=== PATIENT | male | born 1975 | race Caucasian/White ===

== ENCOUNTER 2024-09-19 21:48 | Emergency (ER) | payer MEDICAID, SELFPAY ==
[2024-09-19 22:07] VITALS: BP 193/117; PULSE 104; RESP 18; TEMP 36.6; O2SAT 99; BMI 36.7
--- NOTE | 2024-09-19 23:03 | ED_ITS ---
Discharge Plan Disposition Patient Disposition: Home, Self-Care Prescriptions Prescriptions: New methocarbamol 500 mg tablet 500 mg PO Q6H PRN (Reason: pain) Qty: 30 0RF lidocaine 5 % adhesive patch,medicated 1 patch topical DAILY PRN (Reason: pain) Qty: 30 0RF Rx Instructions: leave on most painful area for up to 12 hrs cyclobenzaprine 5 mg tablet 5 mg PO TID PRN (Reason: muscle spasm) Qty: 30 0RF Referrals Follow up/Referrals: Sandra Breaux APRN [Primary Care Provider] - See instructions Activity Restrictions/Add. Instructions Additional Instructions/Restrictions: Please follow-up with your primary care provider and with your orthopedist. Please return to the emergency department if you develop any new or worsening symptoms or become concerned for your health. Clinical Impressions Clinical Impression: Back pain of lumbar region with sciatica, Degenerative joint disease of both hips Print Language Print Language: [place] Discharge ED Provider: Shun Calixto Adult HPI General Chief complaint: PAIN Stated complaint: chronic back pain Time Seen by Provider: 09/19/24 23:03 Mode of Arrival: Ambulatory Source of Information: Patient Description of Symptoms (Recalled from ER Triage Doc. by RN): patient states he is having back pain and both hips are hurting he has sustained multiple falls over the past few weeks. is supposed to have surgery on his righ thip at some point. fell today once due to hip giving out. 10/10 pain that is constant. History of Present Illness HPI narrative: 49-year-old male with history of chronic bilateral hip pain, chronic low back pain presents with worsening symptoms. Reports multiple falls recently. He is supposed to have surgery on his right hip but has not been able to get it yet. Reports that his hip intermittently gives out. Reports significant pain. Denies any fever, history of IV drug use, recent infection. Denies any surgery on the back. Denies any bleeding disorder. Denies any perineal numbness, no bowel or bladder incontinence or retention. Reports pain is various in quality sometimes sharp, sometimes shocking, runs down bilateral legs. Related Data Previous Rx's ?Medication ?Instructions ?Recorded cyclobenzaprine 5 mg tablet 5 mg PO TID PRN muscle spasm #30 09/20/24 tabs lidocaine 5 % topical patch 1 patch topical DAILY PRN pain #30 09/20/24 ea methocarbamol 500 mg tablet 500 mg PO Q6H PRN pain #30 tabs 09/20/24 Allergies Allergy/AdvReac Type Severity Reaction Status Date / Time No Known Allergies Allergy Verified 09/19/24 23:16 [facility] Disclaimer: The information contained in this section may have been updated after the patient was seen, as this information can be updated by other users. Social History Smoking Status: Unknown if ever smoked alcohol intake: never current occupational status: employed Travel in the last 8 weeks: None ROS Obtained: Yes All systems reviewed & no additional complaints except as documented Physical Exam General General appearance: alert and in no apparent distress Head Head exam: atraumatic and normocephalic Eye Eye exam: Present normal appearance, PERRL and EOMI ENT ENT exam: Present normal oropharynx and normal external ear exam Neck Neck exam: Present normal inspection and full ROM Chest Chest inspection: Present normal inspection and symmetric chest wall rise; Absent tenderness Respiratory Respiratory exam: Present normal lung sounds bilaterally; Absent respiratory distress Cardiovascular Cardiovascular exam: Present regular rate and normal rhythm Abdominal Exam Abdominal exam: Present soft; Absent distention, tenderness or guarding Extremities Exam Extremities exam: Present normal inspection; Absent edema or joint swelling Back Exam Back exam: Present normal inspection; Absent tenderness Neurological Exam Neurological exam: Present alert and oriented X3; Absent motor sensory deficit Psychiatric Psychiatric exam: Present normal affect and normal mood Skin Skin exam: Present warm, dry and normal color Lymphatic Lymphatic Findings: no adenopathy Medical Decision Making Medical Records Medical records reviewed: Yes I reviewed the patient's medical records. Screening: Per USPSTF and CDC recommendations, given the prevalence of disease in our region, it is our hospital?s policy to screen for HIV and viral Hepatitis for all patients aged 18 and over and those with ongoing risk factors. Raulito Inquiry Pt receiving controlled substance: No Raulito was queried for this patient: No Vital Signs: 09/19/24 22:07 09/20/24 00:25 Temperature 97.9 F 97.9 F Temperature Source Oral Pulse Rate 88 Pulse Rate [Right] 104 H Respiratory Rate 18 20 Blood Pressure 178/74 H Blood Pressure [Right Arm] 193/117 H Blood Pressure Mean [Right Arm] 142 Blood Pressure Source [Right Arm] Automatic Cuff Blood Pressure Position [Right Arm] Sitting 02 Sat by Pulse Oximetry 99 Oxygen Delivery Method Room Air Room Air Lab Data Lab results reviewed: Yes I reviewed the patient's lab results. Orders (Tests/Meds): ED MEDICATIONS Discontinued Medications Generic Name Dose Route Start Last Admin Trade Name Cristian PRN Reason Stop Dose Admin Acetaminophen 1,000 mg 09/19/24 23:11 09/19/24 23:25 Acetaminophen 500mg Tab PO 09/19/24 23:12 1,000 mg ONCE ONE Administration Ketorolac Tromethamine 30 mg 09/19/24 23:11 09/19/24 23:26 Ketorolac 30mg/Ml Vial IM 09/19/24 23:12 30 mg ONCE ONE Administration Lidocaine 1 each 09/19/24 23:11 09/19/24 23:25 Lidocaine 5% Transdermal Patch TD 09/19/24 23:12 1 each ONCE ONE Administration Methocarbamol 500 mg 09/19/24 23:11 09/19/24 23:25 Methocarbamol 500mg Tablet PO 09/19/24 23:12 500 mg ONCE ONE Administration ORDERS Category Date Time Status CT bony pelvis Stat Cat Scan 09/19/24 23:[address] lumbar spine wo con Stat Cat Scan 09/19/24 23:11 Completed Medical Decision Narrative: 49-year-old male with history of chronic back and hip pain presents with worsening pain over the last few weeks, multiple falls recently. History was obtained via interactive discussion with patient, family. On arrival, patient is [afebrile, hemodynamically stable, satting appropriately, alert, oriented x4, GCS 15], moving all extremities spontaneously. Full physical exam performed and significant for no focal neurologic deficits, paraspinal and midline lumbar spinal tenderness. Differential includes but is not limited to fracture, dislocation, disc herniation, sciatica, spinal cord pathology, arthritis. Patient was given Tylenol, Toradol, Robaxin, lidocaine patches for symptomatic management and correction of underlying abnormalities. Workup initiated including CT lumbar spine, CT bony pelvis. On re-evaluation, patient [remains afebrile, HD stable.] Imaging independently interpreted by me and significant for unusual degenerative changes within the right acetabulum and femur. Hardware appears unremarkable in the left femur. No lumbar fracture or spinal stenosis noted. See radiology read for full review of final results. Given patient history, exam and workup, patient's presentation most likely represents worsening arthritis and chronic back and hip pain. Patient was discharged in stable condition with prescription for muscle relaxers. Return precautions given. Procedures Risk/Benefits of Procedure(s) Were Explained: Yes Critical Care Critical Care Time Critical Care Time: No
--- NOTE | 2024-09-19 23:11 | CT_ITS ---
PROCEDURE INFORMATION: Exam: CT Pelvis Without Contrast, Skeleton Exam date and time: 09/19/2024 11:26 PM Age: 49 years old Clinical indication: Hip pain; Bilateral; Additional info: Aoc bilat hip pain TECHNIQUE: Imaging protocol: Computed tomography of the pelvis without contrast. Exam focused on the skeleton. Radiation optimization: All CT scans at this facility use at least one of these dose optimization techniques: automated exposure control; mA and/or kV adjustment per patient size (includes targeted exams where dose is matched to clinical indication); or iterative reconstruction. COMPARISON: CT LUMBAR SPINE WO CON 09/19/2024 11:24 PM FINDINGS: Bones/joints: Severe degenerative changes of right hip with [id number] appearance, periarticular cysts and marginal osteophytosis. Expansile lucency along right lateral bony acetabulum measuring 2.5 x 1.6 cm (series 1001 image 119). ORIF of left femoral shaft. No significant degenerative changes of left hip. No acute fracture. No dislocation. No obvious effusion. Soft tissues: Unremarkable. IMPRESSION: 1. No acute findings. 2. Severe degenerative changes of right hip with possible paralabral cyst and chronic erosion of lateral bony acetabulum. If clinically indicated, can be further evaluated with MRI.
--- NOTE | 2024-09-19 23:11 | CT_ITS ---
PROCEDURE INFORMATION: Exam: CT Lumbar Spine Without Contrast Exam date and time: 09/19/2024 11:24 PM Age: 49 years old Clinical indication: Low back pain; Additional info: Aoc low back pain, falls, radicular symptoms TECHNIQUE: Imaging protocol: Computed tomography of the lumbar spine without contrast. Radiation optimization: All CT scans at this facility use at least one of these dose optimization techniques: automated exposure control; mA and/or kV adjustment per patient size (includes targeted exams where dose is matched to clinical indication); or iterative reconstruction. COMPARISON: No relevant prior studies available. FINDINGS: Bones/joints: No acute fracture. Normal alignment. Soft tissues: Unremarkable. IMPRESSION: No acute findings.
[2024-09-19] MEDS: METHOCARBAMOL 500MG TABLET 500 MG PO (23:25)
[2024-09-19] MEDS: ACETAMINOPHEN 500MG TAB 1000 MG PO (23:25)
[2024-09-19] MEDS: LIDOCAINE 5% TRANSDERMAL PATCH 1 EACH TD (23:25)
[2024-09-19] MEDS: KETOROLAC 30MG/ML VIAL 30 MG IM (23:26)
[2024-09-20 00:25] VITALS: BP 178/74; PULSE 88; RESP 20; TEMP 36.6; O2SAT 98
== END 2024-09-20 00:29 | disposition home or self-care (01) ==
PROVIDERS: Emergency Provider Emergency Medicine; PCP Nurse Practitioner Family
DX: M16.0 Bilateral primary osteoarthritis of hip (principal); M54.40 Lumbago with sciatica, unspecified side; M25.551 Pain in right hip; M25.552 Pain in left hip; G89.29 Other chronic pain; R29.6 Repeated falls
CPT/HCPCS: 72131; 72192; 96372; 99284; J1885

== ENCOUNTER 2025-03-24 18:39 | Emergency (ER) | payer MEDICAID, SELFPAY ==
--- OUTSIDE RECORDS SUMMARY | 2025-02-05 13:00 | XMS_ITS | Encounter Summary ---
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 Name Role Phone Unavailable Primary Care Provider Unavailabl e Encounter Details Date Type Department Care Team (Latest Contact Info) Description 02/05/2025 1:00 PM EDT - 02/05/2025 11:59 PM EDT Hospital Encounter [facility] Preadmissions Testing [address] [place] [address] Discharge Disposition: Home or Self Care Social History Tobacco Use Types Packs/Day Years Used Date Smoking Tobacco: Never Smokeless Tobacco: Current Alcohol Use Standard Drinks/Week Comments Never 0 (1 standard drink = 0.6 oz pur e alcohol) Sex and Gender Information Value Date Recorded Sex Assigned at Not on file Legal Sex Male 2:06 PM CDT Gender Identity Not on file Sexual Orientation Not on file documented as of this encounter Last Filed Vital Signs Vital Sign Reading Time Taken Comments Blood Pressure - - Pulse - - Temperature - - Respiratory Rate - - Oxygen Saturation - - Inhaled Oxygen Concentration - - Weight 134.3 kg (296 lb) 02/05/2025 11:00 AM EDT ACTUAL Height 190.5 cm (6' 3 ) 02/05/2025 11:00 AM EDT Body Mass Index 37 02/05/2025 11:00 AM EDT documented in this encounter Discharge Instructions * Discharge Instructions* Cely Quiñones RN - 02/05/2025 12:45 PM EDT PRE-SURGICAL INSTRUCTIONS Date of Surgery: 02/07/2025 DIET -NO food or drinks after midnight the night before your surgery -You can have 20 oz of either zero Gatorade/ [place] Gatorade or water up to 2 hours before your scheduled arrival time -NO chewing gum, hard candy, mints, or chewing tobacco. -Follow the surgeon???s specific instructions for the day before your procedure NO ALCOHOL 24 hours before your surgery. NO SMOKING OR TOBACCO PRODUCTS after midnight the night prior to your surgery. HYGIENE- for the night before and morning of surgery -If instructed, bathe or shower using Hibiclens the night before and the morning of surgery. Avoid getting Hibiclens in eyes, ears, or genital area. -Change bed sheets night prior to surgery -You may brush your teeth, mouthwash is acceptable. -No makeup, fingernail amharic, hair spray/gel, body lotion, aftershave, or perfume. -Remove contact lenses and remove jewelry (all body piercings) the day of surgery. -Dentures will be removed prior to being taken to OR during day of surgery. -Wear loose, comfortable clothing to go home in. -Leave valuables and personal belongings at home. Call your surgeon???s office if you become sick 24 hours prior to your surgery date: fever, chills,cold, productive cough, sore throat, vomiting or diarrhea. MEDICATIONS Follow medication list instructions with a sip of water. Stop Vitamins/herbal supplements 2 weeks before surgery. Stop NSAID's (ibuprofen, naproxen sodium, Advil, Aleve, aspirin, ect.) 1 week before surgery. SPECIFIC INSTRUCTIONS Asthma, Bronchitis, COPD: Use your inhaler(s) and/or nebulizer(s) morning of surgery. Diabetics: DO NOT take your diabetic medication the morning of the surgery. Take your medicine the night before as instructed. Make sure to have someone available to assist you 10/01 at least the first week following your surgery If you have any questions please contact the [facility] department at [phone] or the Same Day Surgery Department at [phone]. documented in this encounter Medications at Time of Discharge albuterol (Ventolin HFA) 90 mcg/actuation inhaler Inhale 2 puffs by mouth every 4 (four) hours. budesonide-formoter oL (SYMBICORT) 160-4.5 mcg/actuation inhaler INHALE TWO (2) PUFFS TWICE DAILY famotidine (PEPCID) 40 MG tablet Take 1 tablet (40 mg total) by mouth daily. 11/07/2024 fluticasone propionate (FLONASE) 50 mcg/actuation nasal spray SQUIRT ONE SPRAY IN EACH NOSTRIL EVERY DAY hydrOXYzine (ATARAX) 25 MG tablet Take 1-2 tablets (25-50 mg total) by mouth nightly. 11/07/2024 lidocaine (LIDODERM) 5 % ptmd patch Place 1 patch on the skin daily Remove & Discard patch within 12 hours or as directed by MD. losartan (COZAAR) 50 MG tablet Take 1 tablet (50 mg total) by mouth daily. 11/07/2024 prazosin (MINIPRESS) 1 MG capsule Take 1 capsule (1 mg total) by mouth daily. 11/07/2024 traZODone (DESYREL) 50 MG tablet Take 1 tablet (50 mg total) by mouth daily. 11/07/2024 acetaminophen (Tylenol Extra Strength) 500 MG tablet Take 2 tablets (1,000 mg total) by mouth every 8 (eight) hours for 10 days. 60 tablet 02/07/2025 5 docusate sodium (Colace) 100 MG capsule Take 1 capsule (100 mg total) by mouth 2 (two) times daily for 10 days. 20 capsule 02/07/2025 5 meloxicam (MOBIC) 15 MG tablet Take 1 tablet (15 mg total) by mouth daily for 30 doses. 30 tablet 02/07/2025 5 pantoprazole (PROTONIX) 40 MG tablet Take 1 tablet (40 mg total) by mouth daily for 30 days. 30 tablet 02/07/2025 5 ibuprofen (MOTRIN) 800 MG tablet Take 1 tablet (800 mg total) by mouth 3 (three) times daily. 11/07/2024 5 methocarbamoL (ROBAXIN) 500 MG tablet TAKE ONE (1) TABLET FOUR (4) TIMES A DAY BY ORAL ROUTE FOR 30 DAYS. mupirocin (BACTROBAN) 2 % ointmentIndications :Primary osteoarthritis of right hip,Positive result for methicillin resistant Staphylococcus aureus (MRSA) screening Apply intranasal into each nostril two times a day for five days. 22 g 02/01/2025 oxyCODONE (ROXICODONE) 10 MG tablet Take 1 tablet (10 mg total) by mouth every 6 (six) hours as needed for pain (severe post operative pain) for up to 7 days. Max Daily Amount: 40 mg 28 tablet 02/07/2025 documented as of this encounter Procedure Notes * Cely Quiñones RN - 02/05/2025 1:00 PM EDT Discussed health history and medications. Printed AVS with medication instructions and Pre-SurgicalInstructions then discussed with patient. Patient verbalized understanding of instructions. All questions answered. AVS was given to patient in Pre Procedure Instructions packet. Verified patient will have assistance day of surgery and when d/c'd home. Patient has number to call [facility] or same day surgery with questions. documented in this encounter Plan of Treatment Upcoming Encounters Date Type Department Care Team (Late st Contact Info) Description 04/30/2025 10:45 AM EST Office Visit [facility] - [address] [phone] Joe Arellano MD [address] [place] [phone] documented as of this encounter Visit Diagnoses Not on filedocumented in this encounter
--- OUTSIDE RECORDS SUMMARY | 2025-02-07 07:12 | XMS_ITS | Encounter Summary ---
Author Organization [employer] ([place], [place], [place], [place]) Address [address] [place] [address] Care Team Providers Care Back Panel Padder Name Role Phone [facility], Find-A-Doc Primary Care Provider Reason for Referral * Consultation (Routine) - New Request Specialty Diagnoses / Procedures Referred By Patricia khan Referred To Contact Home Health Services Diagnoses Status post right hip replacement Joe Arellano MD [address] [place] [id number] Phone: tel: fax: Referral ID Status Reason Start Date Expiration Date Visits Requested Visits Authorized [id number] New Request Specialty Services Required 02/07/2025 02/07/2026 1 1 Reason for Visit * Auth/Cert (Routine) Specialty Diagnoses / Procedures Referred By Patricia khan Referred To Contact Diagnoses Osteoarthritis of right hip Osteoarthritis of right hip Procedures SD ARTHRP ACETBLR/PROX FEM PROSTC AGRFT/ALGRFT ARTHROPLASTY, HIP Joe Arellano MD [address] [place] [id number] Phone: tel: fax: Referral ID Status Reason Start Date Expiration Date Visits Re quested Visits Authorized [id number] 01/22/2025 1 1 Encounter Details Date Type Department Care Team (Late st Contact Info) Description 02/07/2025 7:12 AM EDT - 02/07/2025 3:35 PM EDT Hospital Encounter [facility] Operating Room [address] [address] Jeo Arellano MD [address] [place] [address] Status post right hip replacement 02/07/25 (Primary Dx); Osteoarthritis of right hip Discharge Disposition: Home or Self Care Social [...] Sign Reading Time Taken Comments Blood Pressure 130/79 02/07/2025 12:27 PM EDT Pulse 82 02/07/2025 12:27 PM EDT Temperature 36.6 C (97.8 F) 02/07/2025 12:27 PM EDT Respiratory Rate 17 02/07/2025 12:2 7 PM EDT Oxygen Saturation 95% 02/07/2025 12: 27 PM EDT Inhaled Oxygen Concentration - - Weight 128.5 kg (283 lb 6.4 oz) 02/07/2025 7:38 AM EDT Height 190.5 cm (6' 3 ) 02/07/2025 7:38 AM EDT Body Mass Index 35.42 02/07/2025 7:38 AM EDT documented in this encounter Discharge Instructions * Discharge Instructions* Mary Butler RN - 02/07/2025 8:11 AM EDT Sedative Medications given during the procedure can slow your reaction time and coordination for many hours. Please follow these instructions: - DO NOT conduct important business or sign legal documents on the date of the procedure. - DO NOT resume normal activities until directed by your surgeon - DO NOT drive a car or operate any machinery or power tools until directed by your surgeon - DO NOT drink alcohol or take nerve or sleeping medication. These will add to the effects of the sedation. - Regular diet after you tolerate liquids unless instructed otherwise by the physician. - Someone needs to be available to assist you during your recovery -Weight bearing as tolerated with walker -NO driving until instructed by physician, -Do NOT drive while taking pain medications. -Wear shawn hose for 2 weeks. Extra pair will be given before discharged. Clean and exchange daily orif soiled. -You may shower on post op day 3, surgery day is considered day 0. NO soaking or scrubbing. No submerging incision in any body of water (tubs, pools, hot tubs). -Dr. Arellano- Outer dressing will be removed on post op day 1 (if discharged day of surgery). LeaveSilverlon (bandage directly over the incision) in place until you see your surgeon in 10-14 days. At the 10-14 day follow up appointment the surgeon will educate on continued incision care. Leave derma salmon (skin glue) intact, this is directly on the incision. -Silverlon (bandage directly over the incision) is water proof. -Wrap Silverlon (bandage directly over the incision) in Saran Wrap before each shower to help the dressing continue to be waterproof. After each shower remove the Saran Wrap. 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 budesonide-formo teroL (SYMBICORT) 160-4.5 mcg/actuation inhaler INHALE TWO (2) [...] for 30 days. 30 tablet 02/07/2025 5 oxyCODONE (ROXICODONE) 10 MG tablet Take 1 tablet (10 mg total) by mouth every 6 (six) hours as needed for pain (severe post operative pain) for up to 7 days. Max Daily Amount: 40 mg 28 tablet 02/07/2025 5 documented as of this encounter Progress Notes * Harry Diaz - 02/07/2025 3:20 PM EDT Images from the original note were not included. Inpatient Physical Therapy Initial Evaluation Patient Name: Tom Solano Date of : 1975 Date of Evaluation: 02/07/25 In Time 1436 Out Time 1511 Session Duration 35 minutes Time spent for nursing collaboration, chart and systems review, and clinical reasoning. 10 minutes Total Time 45 minutes Pt is a 49 y.o. male admitted on 02/07/2025 with Osteoarthritis of right hip [M16.11]. Past Medical History: Diagnosis Date Asthma Closed left arm fracture COPD (chronic obstructive pulmonary disease) (HCC) Femur fracture, left (HCC) GERD (gastroesophageal reflux disease) Hyperlipidemia Hypertension MRSA infection 01/2025 CODIE (obstructive sleep apnea) MACHINE NONCOMPLIANCE Past Surgical History: Procedure Laterality Date ELBOW FRACTURE SURGERY Left X2 FEMUR FRACTURE SURGERY General Visit Type: Initial Evaluation Approved By: Nursing Patient Disposition Upon Entry: Supine in bed, Call Light/Pull Cord in reach, All needs met and within reach, Nursing aware/notified, HOB >30 degrees, Shawn hose on Patient Verified By: Name and Date of Co-treated by: OT Assisted by: Physical Therapist Precautions Weight-Bearing Status: Weight Bearing As Tolerated (WBAT), R LE Precautions: Fall risk Isolation Precautions: Standard Lines, tubes, drains, airway: peripheral IV Subjective Subjective: Patient agreeable to physical therapy evaluation and treatment. Pain Pt reported 10/10 pain from sitting, notes less intense pain in right hip. RN notified. Cognition WFL Home Living Pt reports at baseline, he is independent with mobility and ADL's using a walking cane. He sometimes requires assist with putting his shoe on the right foot. He has a walking cane and rolling walker at home. He lives with his girlfriend in a two level house with no ASHLY. He only stays on the first level of the home. He has an extensive history of falling, reporting over 20 falls in the past 6 months. Objective Vitals Vitals: 02/07/25 1227 BP: 130/79 Pulse: 82 Resp: 17 Temp: 97.8 ??F (36.6 ??C) SpO2: 95% SpO2 91% and above on room air during ambulation. SpO2 95% and above post ambulation supine in bed. RN aware and notified. Basic Strength Assessment R LE weakness postop, less than 3/5 quad, hamstring strength, less than 3/5 DF and PF strength; L LE strength WNL Range of Motion Assessment Decreased R hip and knee ROM postop Sensation Pt reports numb sensation to R LE postop. Denies chronic N/T. Coordination Coordination is intact and within normal limits. Functional Mobility Bed Mobility Supine to Sit: Minimal assist, 1-person assist, HOB elevated Sit to Supine: Minimal assist, 1-person assist, HOB elevated Transfers Sit to Stand: Contact guard assist, 1-person assist, gait belt used, rolling walker used Stand to Sit: Contact guard assist, 1-person assist, gait belt used, rolling walker used Gait Pt ambulated 150' using RW with contact guard assistance, 1 person assist and gait belt for steadying. Stair Management Pt reported he does not have to negotiate stairs to get into home or within home. Wheelchair Mobility Not assessed, patient ambulatory. AM-PAC Basic Mobility Inpatient Short Form How much difficulty does the patient currently have: Turning over in bed (including adjusting bedclothes, sheets, and blankets)? (3) A little (can do the activity without assistive devices or help from another person, but requires A LITTLE more time and effort) Sitting down on and standing up from a chair with arms (e.g., wheelchair, bedside commode, etc.)? (1) Total/Unable Moving from lying on back to sitting on side of bed? (1) Total/Unable How much help from another person does the patient currently need: Moving to and from a bed to a chair (including a wheelchair)? (3) A little Need to walk in hospital room? (3) A little Climbing 3-5 steps with a railing? (1) Total/Unable Score Raw score=12 Raw score=12 t-Scale score=35.33 Standard error=3.08 CMS 0-100%=68.66% MDC=4.72 A raw score of >= 16 is significantly associated with increased odds of discharge to home in addition to consideration made for the patient's cognition and social determinants of health. Balance Sitting balance standby assist, Standing balance contact guard assist with RW Activity Tolerance Patient limited with activity/intervention due to weakness Treatment Gait training - see above 1 set x 5-10 repetitions R LE ankle pumps, quad sets, glut sets, short arc quads, heel slides, hip abduction/adduction Assessment Pt seen today for a mobility evaluation s/p R ROXANN on 02/07/25. Pt able to stand, ambulate 150' usingthe walker with contact guard assistance. SpO2 91% and above during ambulation, returned to 95% andabove at rest in wheelchair and supine in bed on room air. RN aware and notified. Exercises reviewed with the patient verbalizing and demonstrating understanding. Pt will benefit from skilled PT to improve his strength and independence with functional mobility. Problems: Decreased functional mobility, Decreased gait tolerance, Decreased strength, Decreased activity tolerance, Impaired standing balance, Impaired dynamic balance, Gait impairment, Restricted ROM, Pain , Sensory deficits Rehab potential: Good for stated goals Plan Treatment Plan: Therapeutic Exercise, Therapeutic Activity, Gait Training, Neuromuscular Re-education, Transfer Training, Balance Training, Stair Training, Strengthening, Home Exercise Program, ROM, Wheelchair Management/Mobility Training, Pain Management, Patient/Family/Caregiver Education, DME Rec ommendations, Co-Treat with OT PT Frequency/Duration: 1-2x/day for 2 weeks Recommendations Discharge recommendations: Discharge home/prior living situation. Patient would benefit from continued therapy services. (Anticipate) DME recommendations: Patient has no DME/adaptive equipment discharge needs at this time. (Case management dropped off rolling walker prior to session) Goals Supine to/from sit: Pt will complete supine<>sit Lily Sit to/from stand: Pt will complete sit<>stand using RW SBA Gait: Pt will ambulate 150' using RW SBA Other Goal #1: Pt will be independent with HEP Target Date: 02/21/2025 Goals were discussed with patient and family Education Patient/Visitors educated on safety, use of call button, role of physical therapy, plan of care, therapeutic exercise, HEP packet, ambulation, transfers, bed mobility, ROM/positioning, stair negotiation, home safety, need for assistance and risk for falls and following, they were able to verbalize u nderstanding. No further questions or concerns stated. Patient Disposition Upon Leaving Supine in bed with bed alarm on, Call Light/Pull Cord in reach, All needs met and within reach, Nursing aware/notified, HOB >30 degrees, Family in room, Shawn hose on, SpO2 95% on RA If this patient discharges prior to next therapy session, this note serves as the patient's discharge summary. . Cosigned by Mary Corea PT at 02/07/2025 4:32 PM EDT Associated attestation - Mary Corea PT - 02/07/2025 3:32 PM CDT I evaluated this patient. reviewed the notes, assessments, and/or procedures performed by Harry Diaz, I concur with her/his documentation of Tom Solano. * Montserrat Alvares, OTR/Jef - 02/07/2025 3:19 PM EDT Inpatient Occupational Therapy Initial Evaluation Patient Name: Tom Solano Date of : 1975 Date of Evaluation: 02/07/25 Start Time: 143 Stop Time: 151 Session Duration: 36 minutes Total time: 46 minutes spent, including 10 minutes for nursing collaboration, thorough chart and systems review, and clinical reasoning. This patient is a 49 y.o. male admitted on 02/07/2025 with Osteoarthritis of right hip [M16.11]. Patient had Right ROXANN on 02/07/2025 Past Medical History: Diagnosis Date Asthma Closed left arm fracture COPD (chronic obstructive pulmonary disease) (HCC) Femur fracture, left (HCC) GERD (gastroesophageal reflux disease) Hyperlipidemia Hypertension MRSA infection 01/2025 CODIE (obstructive sleep apnea) MACHINE NONCOMPLIANCE Past Surgical History: Procedure Laterality Date ELBOW FRACTURE SURGERY Left X2 FEMUR FRACTURE SURGERY General Visit type: Initial Evaluation Approved by: Nursing Patient disposition upon entry: Patient verified by name, Patient verified by date of , Supinein bed, Visitor/family present, All needs met and within reach, Call light/pull cord in reach, Headof bed >30 degrees, Nursing aware/notified Co-treated by: PT Assisted by: PT Student Precautions Weightbearing status: Weight bearing as tolerated (WBAT), Right lower extremity Precautions: Fall risk Isolation precautions: Standard LDA/Brace/Protective equipment: Lines, drains, and airways: peripheral IV Brace/protective equipment: No brace Subjective Subjective: Pt agreeable Pain 0-10 SCALE Pain location: buttocks 10/10. Pain intervention: Repositioned Nurse notified. Response to intervention: Gradually improving Cognition Cognition: Overall cognitive status: Patient is awake and alert, attending to directions appropriately, demonstrating good problem solving skills, and aware of any deficits or impairments, if present. Arousal/alertness: Appropriate response to stimuli Orientation level: Oriented x4 Following commands: Follows all commands and directions without difficulty Vision/Hearing History Visual/Hearing History: WFL Home Living Lives with: girlfriend Receives help from: Does not receive help at baseline, but has help available at home if needed , will have / care Type of home: House Home layout: No stairs to enter Bathroom layout: Tub/shower unit Home equipment available: CM brought patient a RW Functional Mobility PLOF: Patient reports being complete independent with all functional mobility prior to onset. Used cane at times Activities of Daily Living PLOF: Patient reports requiring assistance with shoes at times prior to onset. Falls in last 6 months: Pt reports more than 20 falls in the last 6 months Objective Vitals Vital signs stable throughout, no adverse reaction during activity Range of Motion Assessment Normal: Patient is able to use bilateral upper extremities for reaching/grasping/holding objects inall planes, including above shoulder level Strength Assessment Good: Patient is able to use arms to pull, push, and hold moderate to maximal resistance at shoulder, elbow, and wrist. Coordination/Sensation Coordination: [facility] Sensation: Right LE decreased secondary to anesthesia; no prior N/T Bed Mobility Supine to sit: Minimal assistance, Head of bed elevated Sit to supine: Minimal assistance Transfers Sit to stand:Contact guard, Gait belt used, Rolling walker used Stand to sit:Contact guard, Gait belt used, Rolling walker used Functional mobility:Contact guard, Gait belt used, Rolling walker used, 150 feet ADLs Feeding:Independent Patient is a feeder: No Grooming:Setup Bathing:DEMETRICE-Unable to assess Upper body dressing:Setup Lower body dressing:Moderate Assistance Toileting:DEMETRICE-Unable to assess Outcome Measures [facility] Daily Living Functional Assessment How much help from another person does the patient currently need: Putting on and taking off regular lower body clothing? 2 Bathing, including washing, rinsing, and drying? 3 Toileting, including using toilet, bedpan or urinal? 3 Putting on and taking off regular upper body clothing? 3 Taking care of personal grooming such as brushing teeth? 3 Eating meals? 4 Raw Score 18/24 Total Score 46.65% impaired 1=Total/Unable (Total assist/Dependent) 2=A lot (Maximal/Moderate assist) 3=A little (Minimal/Contact guard/Supervision/Setup) 4=None (Modified independent/Independent) Raw Score Approximate Degree of Functional Impairment 6 100% 7 92.44% 8 85.69% 9 79.59% 10 74.70% 11 70.42% 12 66.57% 13 63.03% 14 59.67% 15 56.46% 16 53.32% 17 50.11% 18 46.65% 19 42.80% 20 38.32% 21 32.79% 22 25.80% 23 15.86% 24 0% A raw score of >= 19 is significantly associated with increased odds of discharge to home in addition to consideration made for the patient's cognition and social determinants of health. Balance Static sitting balance:Normal: Patient able to maintain steady balance without handheld support Dynamic sitting balance:Normal: Patient accepts maximal challenge and shift weight easily within full range in all directions Static standing balance:Good: Patient able to maintain balance without handheld support; limited postural sway Dynamic standing balance:Fair: Patient accepts minimal challenge; able to maintain balance while turning head/trunk Activity Tolerance Patient tolerated activity/intervention well with no complaints or adverse events. Treatment Pt and caregiver education completed on EC/WS, home safety, car transfers, AE, DME, LB dressing, and ADL transfers; pt and caregiver verbalized understanding. Assessment Assessment Pt participated in OT eval and treat s/p Right ROXANN. Tolerated session well, no adverse events; progressing toward goals Problems: Difficulty with ADLs, Fall risk, Impaired functional mobility Rehab potential: Good for stated goals Plan Recommendations Discharge recommendations: Discharge home/prior living situation. Patient would benefit from continued therapy services. DME recommendations: Patient would benefit from raised toilet seat, tub transfer bench, walker, rolling at discharge. Treatment Plan: ADL training, DME recommendations , Functional mobility/transfer training, Patient/family/caregiver education, Strengthening OT Frequency/Duration: Daily x 5 days Goals Upper body dressing: donning and doffing upper body dressing clothing with setup. Lower body dressing: donning and doffing lower body clothing with moderate assistance. Toileting: toileting with contact guard assist. Bed mobility: sit to supine, supine to sit with minimal assistance. Functional transfers: ambulatory transfer with contact guard assist and RW . Other goal 1: Pt will be ed on and verbalize understanding of energy conservation/work simplification techniques, home safety, car transfers, adaptive equipment, and lower body dressing techniques toincrease independence with ADLs at home Target Date: 02/11/2025 Goals were discussed with patient and family Education Patient/Visitors educated on safety, use of call light, role of occupational therapy, patient's plan of care, ADLs, hip kit, functional mobility, hip precautions, educational materials provided and following, they were able to verbalize understanding. Patient Disposition Upon Leaving Patient disposition upon leaving: Supine in bed, Visitor/family present, All needs met and within reach, Call light/pull cord in reach, Head of bed >30 degrees, Nursing aware/notified If this patient discharges prior to next therapy session, this note serves as the patient's discharge summary. Electronically signed by LUCHO Levine - 02/07/2025 - 3:19 PM EDT * Estrella Thomason RN - 02/07/2025 3:18 PM EDT Patient passed physical therapy. DC instructions given, patient and family verbalized understanding. * Estrella Thomason RN - 02/07/2025 2:36 PM EDT Patient more alert at this time. Sitting up in bed eating, and drinking. PT/OT at bedside now. * Soumya Cardona RN - 02/07/2025 1:59 PM EDT Notified PT/OT that the patient is still quite drowsy, but able to lift leg and wiggle toes. * Katina Franco RN - 02/07/2025 1:19 PM EDT Pt plans to discharge home with family and have home health for therapy. He needs rolling walker.[employer] for DME provider, Wants [facility] for HH. Referrral sent. Patient/family provided with [facility] approved choice list and Patient choice letter along with Quality data link to access Medicare.gov Care Compare website to review potential post-acute providers. Choice provided to patient/family, and patient preferences received and referral(s) submitted to requested providers. Referral(s) submitted to: [facility] * Estrella Thomason RN - 02/07/2025 1:17 PM EDT Patient is still extremely drowsy. Nodding off mid-conversation. Able to wiggle toes on operative leg. * Mary Butler RN - 02/07/2025 7:48 AM EDT Does not use CPAP at home, does have one, refuses to use documented in this encounter H&P Notes * Joe Arellano MD - 02/07/2025 7:13 AM EDT I have reviewed the above History & Physical and I have examined the patient. No changes have occurred since the above History & Physical. Joe Arellano MD Source Note - Olga Head PA-C - 02/04/2025 9:24 AM EDT NAME: Tom Solano CSN: [id number] : 1975 PCP: No primary care provider on file. REASON FOR VISIT Right hip pain HPI Tom Solano is a right hand dominant 49 y.o. male who presents today as a new patient with a complaint of right hip and groin pain, weakness, and numbness. Patient denies previous trauma or surgery. Patient reports he treats with pain management and has had injection into right hip. Patient reports his pain has been present for 6-7 years. Patient reports symptoms are located in groin and GT region. Patient describes his symptoms as stretching in groin and burning in GT region. Alleviating factors include oxycodone he was previously prescribed by pain management, but no longer takes this. Exacerbating factors include standing. Patient reports going to [facility] ED, where hereceived Flexeril but has not taken any. Patient rates their pain as 10/10. Patient ambulates unassisted, but reports frequent falls. CURRENT MEDICATIONS Current Outpatient Medications Medication Instructions albuterol (Ventolin HFA) 90 mcg/actuation inhaler 2 puffs, inhalation, Every 4 hours cyclobenzaprine (FLEXERIL) 5 mg, Every 8 hours PRN famotidine (PEPCID) 40 mg, Daily fluticasone propionate (FLONASE) 50 mcg/actuation nasal spray SQUIRT ONE SPRAY IN EACH NOSTRIL EVERY DAY hydrOXYzine (ATARAX) 25-50 mg, Every Night ibuprofen (MOTRIN) 800 mg, 3 times daily losartan (COZAAR) 50 mg, Daily mupirocin (BACTROBAN) 2 % ointment Apply intranasal into each nostril two times a day for five days oxyCODONE-acetaminophen (PERCOCET) 7.5-325 mg per tablet Take 1/2 - 1 tablet every 8 hours as needed for severe pain. prazosin (MINIPRESS) 1 mg, Daily traZODone (DESYREL) 50 mg, Daily ALLERGIES No Known Allergies PAST MEDICAL/SURGICAL HISTORY Past Medical History: Diagnosis Date Closed left arm fracture Femur fracture, left (HCC) GERD (gastroesophageal reflux disease) Hyperlipidemia Hypertension Past Surgical History: Procedure Laterality Date FEMUR FRACTURE SURGERY SOCIAL HISTORY Social History Tobacco Use Smoking status: Never Smokeless tobacco: Current Substance Use Topics Alcohol use: Never Drug use: Never FAMILY HISTORY Family History Problem Relation Name Age of Onset Arthritis Mother Cancer Mother Hyperlipidemia Mother Arthritis Father Cancer Father Hyperlipidemia Father Diabetes Maternal Grandmother REVIEW OF SYSTEMS General: No recent fever or chills, no recent weight loss or weight gain, no insomnia HEENT: No change in vision, no glasses/contacts, no hearing loss, no tinnitus, no vertigo, no congestion/sinus issues CVS: No chest pain, no palpitations, no edema, no varicose veins Resp: No dyspnea, no wheezing, no cough, no hemoptysis GI: No dysphagia, no nausea, no vomiting, no heart burn, no constipation, no diarrhea : No dysuria, no hematuria, no nocturia, no history of chronic UTI Musculoskeletal: See HPI Derm: No rash, no abrasions, no skin discoloration, no history or MRSA Neuro: See HPI Endo: No cold/heat intolerance Heme: No abnormal bruising or bleeding Psych: No depression, no anxiety, no fatigue, no mood swings Scribe Attestation: IShani RTR acted as a scribe and transcribed components of the currentencounter under the direction of the Attending Provider. I have not been involved in providing any clinical treatments or patient care. Electronically Signed, CAMPOS Garza OBJECTIVE There were no vitals filed for this visit. Physical Exam Vitals reviewed. Constitutional: Appearance: Normal appearance. HENT: Head: Normocephalic and atraumatic. Skin: General: Skin is warm and dry. Capillary Refill: Capillary refill takes less than 2 seconds. Findings: No bruising or erythema. Neurological: Mental Status: alert and oriented to person, place, and time. Gait: Gait abnormal. Psychiatric: Mood and Affect: Mood normal. Behavior: Behavior normal. Ortho Exam Right Hip Exam Appearance: No swelling, no warmth, no erythema, no ecchymosis, no deformity Tenderness on palpation: Tenderness - Greater Trochanter, - Piriformis, - Glute, - SI ROM: limited internal and external rotation with extreme groin pain Strength: 2/5 Quad strength Testing: + reproducible groin pain with internal and external rotation, limited exam due to extremegroin pain Neurovascular: NVI, -Homans Skin: Normal appearance with no discoloration or wounds, -skin disturbance GAIT: Trendelenburg gait IMAGING/OUTSIDE REPORTS XR hip 2 views right Narrative: X-rays of the right hip dated 01/22/2025 illustrate significant wear of the acetabulum and femoral head with severe joint space narrowing, osteophyte formation and sclerotic changes. Impression: Images personally reviewed, interpreted and dictated by Olga Head PA-C under the supervision of Dr. Joe Arellano MD ASSESSMENT Problem List Items Addressed This Visit None PLAN No follow-ups on file. Return to Clinic if new or worse symptoms occur HEP: gentle ROM as tolerated Discussed conservative treatment vs surgical intervention Discussed right hip total hip arthroplasty Surgical Procedure scheduled today in office: Right Total Hip Arthroplasty Special Surgical Procedure Needs: No Diagnosis Discussion: Hip Osteoarthritis: I discussed with patient in depth the options for treatment of osteoarthritis of the hip. Treatment options that include gentle, low-impact exercise, weight loss, the use of NSAIDs, and intra- articular steroid injections. I also discussed that if all conservative measures fail to provide satisfactory relief of symptoms, we can discuss surgical options to include arthroplasty of the hip. Surgical Risk Discussion: Lower Extremity Total Joint Surgical Risk: The risks and benefits of the planned surgery were discussed in depth with the patient. I discussed potential complications including inherent risk of anesthesia, infection, neurovascular damage, DVT, and rare but real potential loss of limb or life were all reviewed. Patient voices understanding and seems to understand to my satisfaction and wishes to proceed with surgery. I gave them no guarantees in regards to outcomes of this surgery. This patient has pain related to the affected joint. This has caused limitations in activities of daily living in terms of sleep disturbance. They are experiencing a fear of falling related to the affected joint. NSAIDs, physical therapy, intra-articular injections, attempts for weight loss have failed to resolve symptoms. Physical examination findings correlate with subjective complaints. Imaging studies also correlate with subjective complaints. This patient is an appropriate candidate for total joint arthroplasty. Patient has tried and failed:Activity Modification NSAIDs Analgesics Home Exercise Program provided by Provider in office Discussed increased risk of developing a deep venous thrombosis (DVT). Discussed signs and symptomsof a DVT, as well as a pulmonary embolus (PE). Discussed ways to reduce this risk including anti-coagulants which patient will be placed on postoperatively, elevating extremity at rest, and motion ofupper/lower extremity throughout the day to include, but not limited to, hand/ankle pumps. Patient to notify my office if signs or symptoms develop consistent with a DVT or PE. Instructed patient to go to ED if unavailable to reach our office and developing signs of shortness of breath or severe calf pains. Patient verbalizes understanding Narcotic Education/Discussions: GERI performed and reviewed Patient Treats with Pain Management: No Major Surgery: We will prescribe opioids after major surgery for 14 days or less with no refills. Patient education using written material provided to patient: Education, guidance, and counseling about medication: Discussed - Schedule II controlled substance(s) will be prescribed according to your orthopedic care and medical necessity. Schedule II controlled substance(s) are only required for a certain amount of time. Every effort on our part will be usedto switch you over to non-narcotic pain medications as soon as your pain level permits. Our office, your pharmacy, and your insurance company will closely monitor your prescription refills for excessive abuse or [place] [facility] use. If necessary, you will be referred to maintenance painter. We will monitor your use of scheduled drugs through the GERI program. In addition, we will follow the monitoring procedures required by the [facility]. The side effects of Schedule II controlled substance(s) / narcotic medications can include GI upset, constipation, drowsiness, dizziness, impaired judgement, itching, rash, and risk of overdose. Narcotic pain medication has high potential for addiction and abuse if not taken properly. You must follow the dosage prescribed to decrease your riskof dependency and / or abuse. Our goal is to decrease you dosage to avoid withdrawal symptoms. Our goal is to have you off of narcotic pain medication as soon as possible. Opioid treatment agreement signed written consent obtained to prescribe controlled substances. Discussed the risks and benefits of the use of controlled substances with patient, including the risk oftolerance and drug dependence. Patient understands these terms Preoperative Education/Discussion Regarding Modifiable Risk Factors Smoking: Patient currently uses smokeless tobacco: I discussed with the patient that the use of tobacco is recognized as a harmful influence in the management of orthopedic problems. It appears to lower the pain threshold. Smoking increases the chance of developing wound healing problems, sympathetic dystrophy, painful nerve irritation, myofascial pain syndrome and improper fracture healing. It is associated with delayed or incomplete recovery and a higher complication rate following treatment of upper extremity problems. It was recommended that surgical patients be nicotine free 8 weeks prior to surgery. Patient advised to stop smoking. If patient has difficulty with smoking cessation, we will refer to primary care provider to begin a treatment plan to help the patient stop smoking. Smoking cessation counseling of approximately five minutes (greater than 3 minutes and up to 10 minutes)was performed. There is no height or weight on file to calculate BMI. Body Mass Index:Patient's current BMI >35 For TOTAL JOINT: Total Joint: Body mass index Lesser Outcomes after Joint Replacement: Joint replacement will help relieve pain and enable patients to live a gustafson, more active life. However, if the patient is obese (BMI > 40), they may never achievethe increased mobility and range of motion experienced by a patient of normal weight. They may also experience more implant and prosthesis complications after surgery, to include but not limited to the following: Component loosening and failure; 2-7x higher risk for infection. Dislocation of the replacement joint, especially in the hip; In some cases, a second revision surgery may be necessary to remove failed implants and replace them with new ones ones. Weight loss advised: Weight Loss Plan for patient: Discussed the following: decrease caloric intake, begin low impact exercises, and incorporate healthy lifestyle measures. Advised to consult primary care provider prior to making changes. Discussed surgical intervention for weight loss but deferred referral to primary care provider [place] if patient is a good candidate for weight loss surgery. Bariatric surgery should be the last resort for weight Diabetic: Patient is not Diabetic Tonnis Classification System: Grade 3: Large cysts, severe narrowing or obliteration of the joint space, severe deformity of the femoral head Scribe Attestation: Daniel Dodson RTR acted as a scribe and transcribed components of the current encounter under the direction of the Attending Provider. I have not been involved in providing any clinical treatments or patient care. Electronically SignedDaniel RTR PA Attestation: Olga Dodson PA-C examined, discussed diagnosis and treatment options, acted as a scribe and transcribed components of the current encounter under the direction of the Attending Provider. Electronically SignedOlga PA-C 02/04/2025 Olga Head PA-C scribing for Joe Arellano MD I, Anup S. Chattha, MD, have read and agree with the documentation that has been completed regarding this visit. By signing this record, I attest that the documentation was completed in my physical presence and is an accurate record of the encounter. Electronically SignedJoe MD 02/04/2025 9:25 AM EDT José Armijo: [facility] is undergoing an EHR transition as of this date of service. There may be a delay in uploading older paper and EHR chart data to this new system. The above encounter has been documented to the best of the provider's working knowledge of the EHR in conjunction with medical information provided by the patient (and/or the patient's family member). Cosigned by Joe Arellano MD at 02/04/2025 9:34 AM EDT * Olga Head PA-C - 02/04/2025 9:24 AM EDT NAME: Tom Solano CSN: [id number] : 1975 PCP: No primary care provider on file. REASON FOR VISIT Right hip pain HPI Tom Solano is a right hand dominant 49 y.o. male who presents today as a new patient with a complaint of right hip and groin pain, weakness, and numbness. Patient denies previous trauma or surgery. Patient reports he treats with pain management and has had injection into right hip. Patient reports his pain has been present for 6-7 years. Patient reports symptoms are located in groin and GT region. Patient describes his symptoms as stretching in groin and burning in GT region. Alleviating factors include oxycodone he was previously prescribed by pain management, but no longer takes this. Exacerbating factors include standing. Patient reports going to [facility] ED, where hereceived Flexeril but has not taken any. Patient rates their pain as 10/10. Patient ambulates unassisted, but reports frequent falls. CURRENT MEDICATIONS Current Outpatient Medications Medication Instructions albuterol (Ventolin HFA) 90 mcg/actuation inhaler 2 puffs, inhalation, Every 4 hours cyclobenzaprine (FLEXERIL) 5 mg, Every 8 hours PRN famotidine (PEPCID) 40 mg, Daily fluticasone propionate (FLONASE) 50 mcg/actuation nasal spray SQUIRT ONE SPRAY IN EACH NOSTRIL EVERY DAY hydrOXYzine (ATARAX) 25-50 mg, Every Night ibuprofen (MOTRIN) 800 mg, 3 times daily losartan (COZAAR) 50 mg, Daily mupirocin (BACTROBAN) 2 % ointment Apply intranasal into each nostril two times a day for five days oxyCODONE-acetaminophen (PERCOCET) 7.5-325 mg per tablet Take 1/2 - 1 tablet every 8 hours as needed for severe pain. prazosin (MINIPRESS) 1 mg, Daily traZODone (DESYREL) 50 mg, Daily ALLERGIES No Known Allergies PAST MEDICAL/SURGICAL HISTORY Past Medical History: Diagnosis Date Closed left arm fracture Femur fracture, left (HCC) GERD (gastroesophageal reflux disease) Hyperlipidemia Hypertension Past Surgical History: Procedure Laterality Date FEMUR FRACTURE SURGERY SOCIAL HISTORY Social History Tobacco Use Smoking status: Never Smokeless tobacco: Current Substance Use Topics Alcohol use: Never Drug use: Never FAMILY HISTORY Family History Problem Relation Name Age of Onset Arthritis Mother Cancer Mother Hyperlipidemia Mother Arthritis Father Cancer Father Hyperlipidemia Father Diabetes Maternal Grandmother REVIEW OF SYSTEMS General: No recent fever or chills, no recent weight loss or weight gain, no insomnia HEENT: No change in vision, no glasses/contacts, no hearing loss, no tinnitus, no vertigo, no congestion/sinus issues CVS: No chest pain, no palpitations, no edema, no varicose veins Resp: No dyspnea, no wheezing, no cough, no hemoptysis GI: No dysphagia, no nausea, no vomiting, no heart burn, no constipation, no diarrhea : No dysuria, no hematuria, no nocturia, no history of chronic UTI Musculoskeletal: See HPI Derm: No rash, no abrasions, no skin discoloration, no history or MRSA Neuro: See HPI Endo: No cold/heat intolerance Heme: No abnormal bruising or bleeding Psych: No depression, no anxiety, no fatigue, no mood swings Scribe Attestation: Shani Dodson RTR acted as a scribe and transcribed components of the [facility] under the direction of the Attending Provider. I have not been involved in providing any clinical treatments or patient care. Electronically Signed, CAMPOS aGrza OBJECTIVE There were no vitals filed for this visit. Physical Exam Vitals reviewed. Constitutional: Appearance: Normal appearance. HENT: Head: Normocephalic and atraumatic. Skin: General: Skin is warm and dry. Capillary Refill: Capillary refill takes less than 2 seconds. Findings: No bruising or erythema. Neurological: Mental Status: alert and oriented to person, place, and time. Gait: Gait abnormal. Psychiatric: Mood and Affect: Mood normal. Behavior: Behavior normal. Ortho Exam Right Hip Exam Appearance: No swelling, no warmth, no erythema, no ecchymosis, no deformity Tenderness on palpation: Tenderness - Greater Trochanter, - Piriformis, - Glute, - SI ROM: limited internal and external rotation with extreme groin pain Strength: 2/5 Quad strength Testing: + reproducible groin pain with internal and external rotation, limited exam due to extremegroin pain Neurovascular: NVI, -Homans Skin: Normal appearance with no discoloration or wounds, -skin disturbance GAIT: Trendelenburg gait IMAGING/OUTSIDE REPORTS XR hip 2 views right Narrative: X-rays of the right hip dated 01/22/2025 illustrate significant wear of the acetabulum and femoral head with severe joint space narrowing, osteophyte formation and sclerotic changes. Impression: Images personally reviewed, interpreted and dictated by Olga Head PA-C under the supervision of Dr. Joe Arellano MD ASSESSMENT Problem List Items Addressed This Visit None PLAN No follow-ups on file. Return to Clinic if new or worse symptoms occur HEP: gentle ROM as tolerated Discussed conservative treatment vs surgical intervention Discussed right hip total hip arthroplasty Surgical Procedure scheduled today in office: Right Total Hip Arthroplasty Special Surgical Procedure Needs: No Diagnosis Discussion: Hip Osteoarthritis: I discussed with patient in depth the options for treatment of osteoarthritis of the hip. Treatment options that include gentle, low-impact exercise, weight loss, the use of NSAIDs, and intra- articular steroid injections. I also discussed that if all conservative measures fail to provide satisfactory relief of symptoms, we can discuss surgical options to include arthroplasty of the hip. Surgical Risk Discussion: Lower Extremity Total Joint Surgical Risk: The risks and benefits of the planned surgery were discussed in depth with the patient. I discussed potential complications including inherent risk of anesthesia, infection, neurovascular damage, DVT, and rare but real potential loss of limb or life were all reviewed. Patient voices understanding and seems to understand to my satisfaction and wishes to proceed with surgery. I gave them no guarantees in regards to outcomes of this surgery. This patient has pain related to the affected joint. This has caused limitations in activities of daily living in terms of sleep disturbance. They are experiencing a fear of falling related to the affected joint. NSAIDs, physical therapy, intra-articular injections, attempts for weight loss have failed to resolve symptoms. Physical examination findings correlate with subjective complaints. Imaging studies also correlate with subjective complaints. This patient is an appropriate candidate for total joint arthroplasty. Patient has tried and failed:Activity Modification NSAIDs Analgesics Home Exercise Program provided by Provider in office Discussed increased risk of developing a deep venous thrombosis (DVT). Discussed signs and symptomsof a DVT, as well as a pulmonary embolus (PE). Discussed ways to reduce this risk including anti-coagulants which patient will be placed on postoperatively, elevating extremity at rest, and motion ofupper/lower extremity throughout the day to include, but not limited to, hand/ankle pumps. Patient to notify my office if signs or symptoms develop consistent with a DVT or PE. Instructed patient to go to ED if unavailable to reach our office and developing signs of shortness of breath or severe calf pains. Patient verbalizes understanding Narcotic Education/Discussions: GERI performed and reviewed Patient Treats with Pain Management: No Major Surgery: We will prescribe opioids after major surgery for 14 days or less with no refills. Patient education using written material provided to patient: Education, guidance, and counseling about medication: Discussed - Schedule II controlled substance(s) will be prescribed according to your orthopedic care and medical necessity. Schedule II controlled substance(s) are only required for a certain amount of time. Every effort on our part will be usedto switch you over to non-narcotic pain medications as soon as your pain level permits. Our office, your pharmacy, and your insurance company will closely monitor your prescription refills for excessive abuse or [place] [facility] use. If necessary, you will be referred to maintenance painter. We will monitor your use of scheduled drugs through the GERI program. In addition, we will follow the monitoring procedures required by the [facility]. The side effects of Schedule II controlled substance(s) / narcotic medications can include GI upset, constipation, drowsiness, dizziness, impaired judgement, itching, rash, and risk of overdose. Narcotic pain medication has high potential for addiction and abuse if not taken properly. You must follow the dosage prescribed to decrease your riskof dependency and / or abuse. Our goal is to decrease you dosage to avoid withdrawal symptoms. Our goal is to have you off of narcotic pain medication as soon as possible. Opioid treatment agreement signed written consent obtained to prescribe controlled substances. Discussed the risks and benefits of the use of controlled substances with patient, including the risk oftolerance and drug dependence. Patient understands these terms Preoperative Education/Discussion Regarding Modifiable Risk Factors Smoking: Patient currently uses smokeless tobacco: I discussed with the patient that the use of tobacco is recognized as a harmful influence in the management of orthopedic problems. It appears to lower the pain threshold. Smoking increases the chance of developing wound healing problems, sympathetic dystrophy, painful nerve irritation, myofascial pain syndrome and improper fracture healing. It is associated with delayed or incomplete recovery and a higher complication rate following treatment of upper extremity problems. It was recommended that surgical patients be nicotine free 8 weeks prior to surgery. Patient advised to stop smoking. If patient has difficulty with smoking cessation, we will refer to primary care provider to begin a treatment plan to help the patient stop smoking. Smoking cessation counseling of approximately five minutes (greater than 3 minutes and up to 10 minutes)was performed. There is no height or weight on file to calculate BMI. Body Mass Index:Patient's current BMI >35 For TOTAL JOINT: Total Joint: Body mass index Lesser Outcomes after Joint Replacement: Joint replacement will help relieve pain and enable patients to live a gustafson, more active life. However, if the patient is obese (BMI > 40), they may never achievethe increased mobility and range of motion experienced by a patient of normal weight. They may also experience more implant and prosthesis complications after surgery, to include but not limited to the following: Component loosening and failure; 2-7x higher risk for infection. Dislocation of the replacement joint, especially in the hip; In some cases, a second revision surgery may be necessary to remove failed implants and replace them with new ones ones. Weight loss advised: Weight Loss Planfor patient: Discussed the following: decrease caloric intake, begin low impact exercises, and incorporate healthy lifestyle measures. Advised to consult primary care provider prior to making changes. Discussed surgical intervention for weight loss but deferred referral to primary care provider to determine if patient is a good candidate for weight loss surgery. Bariatric surgery should be the last resort for weight Diabetic: Patient is not Diabetic Tonnis Classification System: Grade 3: Large cysts, severe narrowing or obliteration of the joint space, severe deformity of the femoral head Scribe Attestation: IDaniel RTR acted as a scribe and transcribed components of the current encounter under the direction of the Attending Provider. I have not been involved in providing any clinical treatments or patient care. Electronically Signed, CAMPOS Sesay PA Attestation: IOlga PA-C examined, discussed diagnosis and treatment options, acted as a scribe and transcribed components of the current encounter under the direction of the Attending Provider. Electronically Signed, Olga Head PA-C 02/04/2025 Olga Head PA-C scribing for Joe Arellano MD I, Joe Arellano MD, have read and agree with the documentation that has been completed regarding this visit. By signing this record, I attest that the documentation was completed in my physical presence and is an accurate record of the encounter. Electronically Signed, Joe Arellano MD 02/04/2025 9:25 AM EDT José Armijo: [facility] is undergoing an EHR transition as of this date of service. There may be a delay in uploading older paper and EHR chart data to this new system. The above encounter has been documented to the best of the provider's working knowledge of the EHR in conjunction with medical information provided by the patient (and/or the patient's family member). Cosigned by Joe Arellano MD at 02/04/2025 9:34 AM EDT documented in this encounter OR Notes * Op Note - Joe Arellano MD - 02/07/2025 11:58 AM EDT DATE OF PROCEDURE: 02/07/2025 PREOPERATIVE DIAGNOSIS: Right hip advanced osteoarthritis. POSTOPERATIVE DIAGNOSIS: Right hip advanced osteoarthritis. PROCEDURE PERFORMED: Right total hip arthroplasty. ASSISTANTS: 1. Olga Head PA-C. 2. Liliana Camejo CFA. 3. Mary Izaguirre LPN. ANESTHESIA: General. ESTIMATED BLOOD LOSS: Approximately, 150 mL. COMPLICATIONS: None. DRAINS: None. CONDITION: Stable to recovery room. OPERATIVE INDICATIONS: Tom is a really pleasant young large male at 49 years old who had a history of previous left femoral rodding with minor osteoarthritis in his left hip and severe osteoarthritis in his right hip. He had failed conservative treatment and on presentation was interested in hip replacement. We discussed his age and how he was in higher risk because of it. Nevertheless, he felt that it was affecting his activities of daily living and given the severity on radiographs, we felt he would be a good candidate for hip replacement. Prior to surgery, risks, benefits, and alternatives were discussed with the patient and informed consent was obtained. OPERATIVE NARRATIVE: I saw Tom in the preoperative holding area and marked his right leg. He mentioned he wished to try to go home today and we felt that would be acceptable as long as he pass physical therapy. He received prophylactic antibiotics. Once in the operating room, a general anesthetic was induced. We positioned him in the left lateral decubitus position for right hip surgery. Leg lengths seemed relatively symmetric. There was a large hip flexion contracture and abduction contracture, where it was difficult to fully assess. We did a standard prep and drape to the right lower extremity. We paused for appropriate time-out. He had already been given preoperative antibiotics, Decadron, and tranexamic acid. After the appropriate time-out, we used a lateral incision with an anterolateral approach to the hip. I reflected about 1/3 of the abductors and the capsule off the hip. The capsule was thickened and redundant, and there were large osteophytes circumferentially around the neck. 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 Once I was able to open up the capsule, I made a T-shaped incision on the edge of the acetabulum and then placed Cobra retractors underneath the neck. I was able to dislocate the hip without difficulty. I carried out a femoral neck cut 1 fingerbreadth above the lesser trochanter. We removed the head and exposed the acetabulum. There was some anterior osteophyte. We removed the labrum and ligamentum teres along with a portion of the transverse acetabular ligament. Once I had good exposure, I removed some of the anterior osteophyte. I then placed the reamer and began sequential reaming starting at 50 mm and reamed up to 56 mm. This seemed to give me a nice circumferential bed of good cancellous bleeding bone. I was able to impact a 56 mm solid back Trident II Tritanium shell. This seated beautifully. We had good purchase. We tried to place this in about 40 degrees of abduction and 20 degrees of anteversion. Once down, I removed the handle and confirmed that I was all the way down through the center hole. I then eliminated this hole with a screw and cap. We inserted the 0 degree standard X3 highly cross-linked polyethylene liner. Next, we exposed the proximal femur by placing the foot in a pouch in the opposite side of the bed and rotating it such that the tibia was perpendicular to the floor. I marked my anteversion here. We then rotated further and gained really good exposure. With retractors in place, I used a box osteotome followed by a hand canal reamer. I then began sequential broaching with the [employer] broaches. We started at size [address] all the way up to size 6, which seemed to fill the proximal canal and really fit well. The patient really had fantastic bone, which was not surprising given his young age. We removed the broach and placed the final implant. I then trialed a 36 +0 head. This reduced nicely, gave us good muscle tension, excellent range of motion, was stable throughout a full range of motion. We removed the trial and replaced it with a biologic equivalent. We then reduced the hip and put it through a full range of motion again. We were quite happy with the outcome. We thoroughly washed at this point using 3 L of Pulsavac lavage and a vancomycin solution. I applied a periarticular ropivacaine cocktail. We then began standard closure and dressings. The patient was transferred to the recovery room in stable condition. He tolerated the procedure well without any complications. /[id number] Joe Arellano MD ASC/AQ / ASC / AQS /[id number] documented in this encounter Plan of Treatment Upcoming Encounters Date Type Department Care Team (Late st Contact Info) Description 04/30/2025 10:45 AM EST Office Visit [facility] - [address] [id number] Joe Arellano MD [address] [place] [address] Scheduled Referrals Name Type Priority Associated Diagnoses Orde r Schedule Ambulatory referral to Home Health Outpatient Referral Routine Status post right hip replacement 02/07/25 Expected: 02/07/2025, Expires: 02/07/2026 documented as of this encounter Procedures Procedure Name Priority Date/Time Associated Diagnosis Comments XR HIP 2 VIEWS RIGHT STAT 02/07/2025 12:04 PM EDT SD ARTHRP ACETBLR/PROX FEM PROSTC AGRFT/ALGRFT 02/07/2025 9:38 AM EDT Osteoarthritis of right hip Case Notes 0700 TISSUE EXAM (MICHI DUMONT) AP Routine 02/07/2025 8:02 AM EDT Osteoarthritis of right hip documented in this encounter Results * XR hip 2 views right (02/07/2025 12:04 PM EDT) Anatomical Region Laterality Modality Pelvis X-Ray 02/07/2025 2:12 PM EDT Impressions 02/07/2025 2:20 PM EDT Surgical changes of arthroplasty without hardware complication. Images reviewed, interpreted, and dictated by Dr. Yana Clark. Transcribed by Antonietta Daigle PA-C. Narrative 02/07/2025 2:20 PM EDT XR HIP 2 VIEWS RIGHT HISTORY: Joint pain. Recent surgery . COMPARISON: January 22, 2025. FINDINGS: A 3 view exam demonstrates surgical changes of right total hip arthroplasty. The hardware has a normal appearance. No fracture is identified. There is an IM blake in the left femur noted. Procedure Note Trevor Clark MD - 02/07/2025 XR HIP 2 VIEWS RIGHT HISTORY: Joint pain. Recent surgery . COMPARISON: January 22, 2025. FINDINGS: A 3 view exam demonstrates surgical changes of right total hip arthroplasty. The hardware has a normal appearance. No fracture is identified. There is an IM blake in the left femur noted. IMPRESSION: Surgical changes of arthroplasty without hardware complication. Images reviewed, interpreted, and dictated by Dr. Yana Clark. Transcribed by Antonietta Daigle PA-C. Joe Arellano MD IMG DIAGNOSTIC IMAGING ORDERAB LES Final Result * Tissue Exam (02/07/2025 8:02 AM EDT) AP RESULT See Note: PATHOLOGY AND CYTOLOGY LABORATORY Comment: PATHOLOGY REPORT DIAGNOSIS: A. FEMORAL HEAD, LEFT, GROSS ONLY: Changes consistent with osteoarthritis Final Reviewed, Diagnosed and Electronically Signed By: ALAN BRANNON MD CLINICAL HISTORY: Obstructive sleep apnea (adult) (pediatric) OSTEOARTHRITIS OF RIGHT HIP MICROSCOPIC DESCRIPTION: GROSS DESCRIPTION: A. Specimen received in formalin labeled right femoral head and consists of a 5.5 cm in diameter by 4.9 cm in length femoral head having a smooth cut proximal end. There is also a separate 4.5 x 2.2 x 0.6 cm portion of bone. Specimen has a total combined weight of 144 g. The articular surface is day and glistening with markedly roughened areas of granularity and multiple areas of eburnation with pitting. No sections are submitted. JTM/RLL Tissue BONE STRUCTURE / Unknown 02/07/2025 8:02 AM EDT us Joe Arellano MD PATHOLOGY/CYTOLOGY ORDERABLES Final Result PATHOLOGY AND [facility]TOLOGY LABORAT[facility] [address] documented in this encounter Visit Diagnoses Diagnosis Status post right hip replacement 8/21/25- Primary Osteoarthritis of right hip Status post right hip replacement 02/07/25 Osteoarthritis of right hip CODIE (obstructive sleep apnea) Obstructive sleep apnea (adult) (pediatric) HTN (hypertension) Unspecified essential hypertension Chronic obstructive pulmonary disease (HCC) Asthma Unspecified asthma documented in this encounter Admitting Diagnoses Diagnosis Osteoarthritis of right hip documented in this encounter Administered Medications Inactive Administered Medications - up to 3 most recent administrations Medication Order MAR Action Action Date Dose Rate Site acetaminophen (TYLENOL) tablet 1,000 mg 1,000 mg Once, oral, On Luanne 02/07/25 at 0800, For 1 dose, Give preprocedure, Pre-op Given 02/07/2025 8:05 AM EDT 1,000 mg celecoxib (CeleBREX) capsule 200 mg 200 mg Once, oral, On Luanne 02/07/25 at 0800, For 1 dose, Look-alike/Sound-alike medication, Pre-op Given 02/07/2025 8:05 AM EDT 200 mg diphenhydrAMINE (BENADRYL) injection 12.5 mg 12.5 mg Every 15 min PRN, intravenous, itching, Starting on Luanne 02/07/25 at 1058, For 4 doses, Maximum cumulative dose 100 mg , PACU ePHEDrine sulfate injection 5 mg 5 mg Every 5 min PRN, intravenous, DBP less than 50 mmHg, SBP less than 100 mmHg, Starting on Luanne 02/07/25 at 1058, For 4 doses, PACU famotidine (PEPCID) tablet 20 mg 20 mg Once, oral, On Luanne 02/07/25 at 0800, For 1 dose, Pharmacist to renally dose if CrCl is less than 50 mL/min or on CRRT., Pre-op Given 02/07/2025 8:05 AM EDT 20 mg fentaNYL PF (SUBLIMAZE) injection 25 mcg 25 mcg Every 5 min PRN, intravenous, severe pain (7-10), First Line for pain moderate or greater, Starting on Luanne 02/07/25 at 1058, For 4 doses, Maximum cumulative dose 100 mcg. If maximum dose is reached, proceed to 2nd Line agent., PACU glycopyrrolate (ROBINUL) injection 0.2 mg 0.2 mg Every 5 min PRN, intravenous, HR less than 50, Starting on Luanne 02/07/25 at 1058, For 2 doses, PACU hydrALAZINE (APRESOLINE) injection 10 mg 10 mg Every 20 min PRN, intravenous, high blood pressure (specify), SBP > 180, Starting on Luanne 02/07/25 at 1058, For 2 doses, Hold if SBP less than 140 mmHg, DBP less than 70 mmHg, or patient is on pressor. Look-alike/Sound-alike medication, PACU HYDROmorphone (DILAUDID) injection 0.5 mg 0.5 mg Every 10 min PRN, intravenous, severe pain (7-10), 2nd Line agent after max dose Fentanyl given if ordered., Starting on Luanne 02/07/25 at 1058, For 4 doses, Maximum cumulative dose 2 mg, PACU, PACU labetaloL (TRANDATE, NORMODYNE) injection 5 mg 5 mg Every 5 min PRN, intravenous, hypertension (sbp greater than 140), Starting on Luanne 02/07/25 at 1058, For 4 doses, Hold if SBP less than 140 mmHg, DBP less than 70 mmHg, or HR less than 60 bpm, PACU lactated Ringer's infusion 100 mL/hr Continuous, intravenous, Starting on Luanne 02/07/25 at 0800, Do not give simultaneously with ceftriaxone via a Y-site., Pre-op New Bag 02/07/2025 11:39 AM EDT Continued by Anesthesia 02/07/2025 9:38 AM EDT 100 mL/hr New Bag 02/07/2025 8:05 AM EDT 100 mL/hr 100 mL/hr meperidine (PF) (DEMEROL) injection 12.5 mg 12.5 mg Every 15 min PRN, intravenous, shivering, Starting on Luanne 02/07/25 at 1058, For 4 doses, PACU, Are you ordering this medication for the approved restricted patient population specified above? Yes mupirocin (BACTROBAN) 2 % ointment 1 application. intraNASAL, Once, On Luanne 02/07/25 at 0800, For 1 dose, Preprocedure to both nares preoperatively, Pre-op Given 02/07/2025 8:05 AM EDT 1 application. ondansetron (ZOFRAN) injection 4 mg 4 mg Every 15 min PRN, intravenous, nausea, Starting on Luanne 02/07/25 at 1058, For 2 doses, 1st line for nausea For IV push, give over 2 - 5 minutes., PACU ondansetron (ZOFRAN) injection 4 mg 4 mg Every 8 hours PRN, intravenous, nausea, vomiting, Starting on Luanne 02/07/25 at 1229, Give IV if patient is unable to take orally. 1st line If inadequate response within 60 minutes, proceed to next-line agent for same PRN reason or contact provider if no further options ordered. For IV push, give over 2 - 5 minutes., Phase II/On Unit ondansetron (ZOFRAN-ODT) disintegrating tablet 4 mg 4 mg Every 8 hours PRN, oral, nausea, vomiting, Starting on Luanne 02/07/25 at 1229, 1st line. If inadequate response within 60 minutes, proceed to next-line agent for same PRN reason or contact provider if no further options ordered., Phase II/On Unit oxyCODONE (ROXICODONE) immediate release tablet 5 mg 5 mg Once as needed, oral, moderate pain (4-6), severe pain (7-10), For patients going home if they have not received hydromorphone or morphine., Starting on Luanne 02/07/25 at 1058, For 1 dose, Look-alike/Sound-alike medication, PACU Given 02/07/2025 12:21 PM EDT 5 mg promethazine (PHENERGAN) 12.5 mg in sodium chloride 0.9 % (NS) 50 mL IVPB (Immediate Use Only) 12.5 mg Every 6 hours PRN, intravenous, at 150 mL/hr, nausea, vomiting, Starting on Luanne 02/07/25 at 1229, 2nd line. Give IV if patient is unable to take orally. If inadequate response within 60 minutes, proceed to next-line agent for same PRN reason or contact provider if no further options ordered. , Phase II/On Unit promethazine (PHENERGAN) tablet 25 mg 25 mg Every 6 hours PRN, oral, nausea, vomiting, Starting on Luanne 02/07/25 at 1229, 2nd line. If inadequate response within 60 minutes, proceed to next-line agent for same PRN reason or contact provider if no further options ordered., Phase II/On Unit vancomycin IVPB 2000 mg in sodium chloride 0.9% (NS) 500 mL 2,000 mg Once (rounded from 2,014.5 mg = 15 mg/kg 134.3 kg), intravenous, Administer over 120 Minutes, On Luanne 02/07/25 at 0800, For 1 dose, Administer within 60 minutes of incision. *Refrigerate*, Pre-op, Please choose an indication: Surgical Prophylaxis IVPB Started 02/07/2025 8:08 AM EDT 2,000 mg 250 mL/hr documented in this encounter Active and Recently Administered Medications Times are shown in EDT. Scheduled Medication Order 02/05/2025 02/06/2025 02/07/2025 acetaminophen (TYLENOL) tablet 1,000 mg (COMPLETED) 1,000 mg Once, oral, On Luanne 02/07/25 at 0800, For 1 dose, Give preprocedure, Pre-op 804 (Given - Provid er: Mary Butler RN) aspirin EC tablet 81 mg 81 mg 2 times daily, oral, First dose on Tue02/08/25 at 0900, For 30 days, * DO NOT CRUSH THIS DOSAGE FORM * ceFAZolin (ANCEF) 3 g in sodium chloride 0.9% (NS) 100 mL (PMX) IVPB (COMPLETED) 3 g Once, intravenous, Administer over 60 Minutes, On Luanne 02/07/25 at 0800, For 1 dose, Cefazolin 2g adjusted to cefazolin 3g for weight >120kg, Please choose an indication: Surgical Prophylaxis 0937 (Given - Provid er: Hayley Salter CRNA) celecoxib (CeleBREX) capsule 200 mg (COMPLETED) 200 mg Once, oral, On Luanne 02/07/25 at 0800, For 1 dose, Look-alike/Sound-alike medication, Pre-op 804 (Given - Provid er: Mary Butler RN) famotidine (PEPCID) tablet 20 mg (COMPLETED) 20 mg Once, oral, On Luanne 02/07/25 at 0800, For 1 dose, Pharmacist to renally dose if CrCl is less than 50 mL/min or on CRRT., Pre-op 804 (Given - Provid er: Mary Butler RN) ferrous sulfate EC tablet 325 mg 325 mg Daily, oral, First dose on Luanne 02/07/25 at 1300, * DO NOT CRUSH THIS DOSAGE FORM *, Phase II/On Unit 1300 (Due) meloxicam (MOBIC) tablet 7.5 mg 7.5 mg Every 12 hours interval, oral, First dose on Tue02/08/25 at 0900, 1st line analgesic, Phase II/On Unit mupirocin (BACTROBAN) 2 % ointment 1 application. (COMPLETED) intraNASAL, Once, On Luanne 02/07/25 at 0800, For 1 dose, Preprocedure to both nares preoperatively, Pre-op 08 (Given - Provid er: Mary Butler, MARY) pantoprazole (PROTONIX) EC tablet 40 mg 40 mg Daily, oral, First dose on Luanne 02/07/25 at 1300, * DO NOT CRUSH THIS DOSAGE FORM *, Phase II/On Unit 1300 (Due) polyethylene glycol (GLYCOLAX) packet 17 g 17 g Daily, oral, First dose on Luanne 02/07/25 at 1300, Bowel Regimen - for prevention of constipation., Phase II/On Unit 1300 (Due) sennosides (SENOKOT) tablet 17.2 mg 17.2 mg Every Night, oral, First dose on Luanne 02/07/25 at 2100, Bowel Regimen - for prevention of constipation., Phase II/On Unit vancomycin IVPB 2000 mg in sodium chloride 0.9% (NS) 500 mL (COMPLETED) 2,000 mg Once (rounded from 2,014.5 mg = 15 mg/kg 134.3 kg), intravenous, Administer over 120 Minutes, On Luanne 02/07/25 at 0800, For 1 dose, Administer within 60 minutes of incision. *Refrigerate*, Pre-op, Please choose an indication: Surgical Prophylaxis 0808 (IVPB Started - Provider: Mary Butler, MARY)1008 (Due: IVPB Stopped - Provider: Mary Butler RN) Continuous Medication Order 02/05/2025 02/06/2025 02/07/2025 lactated Ringer's infusion (CANCELED) 100 mL/hr Continuous, intravenous, Starting on Luanne 02/07/25 at 0800, Do not give simultaneously with ceftriaxone via a Y-site., Pre-op 08 (New Bag - Prov ider: Mary Butler RN)0994 (Continued by Anesthesia - Provider: Hayley Salter CRNA)1138 (Paused - Provider: Hayley Salter CRNA - Comment: Switch to gravity)1139 (New Bag - Provider: Hayley Salter CRNA) sodium chloride 0.9 % infusion 125 mL/hr Continuous, intravenous, Starting on Luanne 02/07/25 at 1300, Phase II/On Unit 1300 (Due) PRN Medication Order 02/05/2025 02/06/2025 02/07/2025 acetaminophen (TYLENOL) tablet 1,000 mg 1,000 mg Every 8 hours PRN, oral, mild pain (1-3), Starting on Luanne 02/07/25 at 1229, 1st line analgesic, Phase II/On Unit diphenhydrAMINE (BENADRYL) injection 12.5 mg 12.5 mg Every 15 min PRN, intravenous, itching, Starting on Luanne 02/07/25 at 1058, For 4 doses, Maximum cumulative dose 100 mg , PACU ePHEDrine sulfate injection 5 mg 5 mg Every 5 min PRN, intravenous, DBP less than 50 mmHg, SBP less than 100 mmHg, Starting on Luanne 02/07/25 at 1058, For 4 doses, PACU fentaNYL PF (SUBLIMAZE) injection 25 mcg 25 mcg Every 5 min PRN, intravenous, severe pain (7-10), First Line for pain moderate or greater, Starting on Luanne 02/07/25 at 1058, For 4 doses, Maximum cumulative dose 100 mcg. If maximum dose is reached, proceed to 2nd Line agent., PACU glycopyrrolate (ROBINUL) injection 0.2 mg 0.2 mg Every 5 min PRN, intravenous, HR less than 50, Starting on Luanne 02/07/25 at 1058, For 2 doses, PACU hydrALAZINE (APRESOLINE) injection 10 mg 10 mg Every 20 min PRN, intravenous, high blood pressure (specify), SBP > 180, Starting on Luanne 02/07/25 at 1058, For 2 doses, Hold if SBP less than 140 mmHg, DBP less than 70 mmHg, or patient is on pressor. Look-alike/Sound-alike medication, PACU HYDROmorphone (DILAUDID) injection 0.5 mg 0.5 mg Every 10 min PRN, intravenous, severe pain (7-10), 2nd Line agent after max dose Fentanyl given if ordered., Starting on Luanne 02/07/25 at 1058, For 4 doses, Maximum cumulative dose 2 mg, PACU, PACU HYDROmorphone (DILAUDID) injection 1 mg 1 mg Every 4 hours PRN, intravenous, severe pain (7-10), Starting on Luanne 02/07/25 at 1229, 3rd line analgesic. Give only if inadequate response (less than 50% reduction in pain score) 60 minutes after administration of 2nd line agent. May give in addition to 1st + 2nd line analgesics (+ adjuvants if ordered), Phase II/On Unit hydrOXYzine (ATARAX) tablet 25 mg 25 mg Every 6 hours PRN, oral, itching, Starting on Luanne 02/07/25 at 1229, Look-alike/Sound-alike medication, Phase II/On Unit labetaloL (TRANDATE, NORMODYNE) injection 5 mg 5 mg Every 5 min PRN, intravenous, hypertension (sbp greater than 140), Starting on Luanne 02/07/25 at 1058, For 4 doses, Hold if SBP less than 140 mmHg, DBP less than 70 mmHg, or HR less than 60 bpm, PACU meperidine (PF) (DEMEROL) injection 12.5 mg 12.5 mg Every 15 min PRN, intravenous, shivering, Starting on Luanne 02/07/25 at 1058, For 4 doses, PACU, Are you ordering this medication for the approved restricted patient population specified above? Yes naloxone (NARCAN) injection 0.2 mg 0.2 mg Every 2 min PRN, intravenous, opioid reversal, respiratory depression,, Starting on Luanne 02/07/25 at 1229, Give for respiratory rate less than 10 breaths/min or if patient is difficult to arouse. Max dose = 10mg. Call provider., Phase II/On Unit ondansetron (ZOFRAN) injection 4 mg 4 mg Every 15 min PRN, intravenous, nausea, Starting on Luanne 02/07/25 at 1058, For 2 doses, 1st line for nausea For IV push, give over 2 - 5 minutes., PACU ondansetron (ZOFRAN) injection 4 mg(Linked Group 1) 4 mg Every 8 hours PRN, intravenous, nausea, vomiting, Starting on Luanne 02/07/25 at 1229, Give IV if patient is unable to take orally. 1st line If inadequate response within 60 minutes, proceed to next-line agent for same PRN reason or contact provider if no further options ordered. For IV push, give over 2 - 5 minutes., Phase II/On Unit ondansetron (ZOFRAN-ODT) disintegrating tablet 4 mg(Linked Group 1) 4 mg Every 8 hours PRN, oral, nausea, vomiting, Starting on Luanne 02/07/25 at 1229, 1st line. If inadequate response within 60 minutes, proceed to next-line agent for same PRN reason or contact provider if no further options ordered., Phase II/On Unit oxyCODONE (ROXICODONE) immediate release tablet 5 mg (COMPLETED) 5 mg Once as needed, oral, moderate pain (4-6), severe pain (7-10), For patients going home if they have not received hydromorphone or morphine., Starting on Luanne 02/07/25 at 1058, For 1 dose, Look-alike/Sound-alike medication, PACU 1221 (Given - Provid er: Enid Berry RN) oxyCODONE (ROXICODONE) immediate release tablet 5 mg 5 mg Every 4 hours PRN, oral, moderate pain (4-6), Starting on Luanne 02/07/25 at 1229, 2nd line analgesic. Give only if inadequate response (less than 50% reduction in pain score) 60 minutes after administration of 1st line analgesics + adjuvants (if ordered). Look-alike/Sound-alike medication, Phase II/On Unit promethazine (PHENERGAN) 12.5 mg in sodium chloride 0.9 % (NS) 50 mL IVPB (Immediate Use Only)(Linked Group 2) 12.5 mg Every 6 hours PRN, intravenous, at 150 mL/hr, nausea, vomiting, Starting on Luanne 02/07/25 at 1229, 2nd line. Give IV if patient is unable to take orally. If inadequate response within 60 minutes, proceed to next-line agent for same PRN reason or contact provider if no further options ordered. , Phase II/On Unit promethazine (PHENERGAN) tablet 25 mg(Linked Group 2) 25 mg Every 6 hours PRN, oral, nausea, vomiting, Starting on Luanne 02/07/25 at 1229, 2nd line. If inadequate response within 60 minutes, proceed to next-line agent for same PRN reason or contact provider if no further options ordered., Phase II/On Unit frvhbainmrs-HES-lhoMUWdvs-ketorola c (R.E.C.K.) 2.46-0.005-0.0008-0.3 mg/mL- 50 mL syringe in NS FOR PERIARTICULAR USE (CANCELED) As needed, Starting on Luanne 02/07/25 at 1011, Intra-op 1011 (Given - Provid er: Joe Arellano MD - Comment: right hip) traMADoL (ULTRAM) tablet 50 mg 50 mg Every 6 hours PRN, oral, moderate pain (4-6), Starting on Luanne 02/07/25 at 1229, 1st line analgesic, Phase II/On Unit vancomycin (VANCOCIN) injection (CANCELED) As needed, Starting on Luanne 02/07/25 at 1010, Intra-op 1010 (Given - Provid er: Joe Arellano MD - Comment: in 3L bag of NS for irrigation) Linked Groups Order Group 1: ondansetron (ZOFRAN-ODT) disintegrating tablet 4 mgJump to med 4 mg Every 8 hours PRN, oral, nausea, vomiting, Starting on Luanne 02/07/25 at 1229, 1st line. If inadequate response within 60 minutes, proceed to next-line agent for same PRN reason or contact provider if no further options ordered., Phase II/On Unit Or ondansetron (ZOFRAN) injection 4 mgJump to med 4 mg Every 8 hours PRN, intravenous, nausea, vomiting, Starting on Luanne 02/07/25 at 1229, Give IV if patient is unable to take orally. 1st line If inadequate response within 60 minutes, proceed to next-line agent for same PRN reason or contact provider if no further options ordered. For IV push, give over 2 - 5 minutes., Phase II/On Unit Group 2: promethazine (PHENERGAN) tablet 25 mgJump to med 25 mg Every 6 hours PRN, oral, nausea, vomiting, Starting on Luanne 02/07/25 at 1229, 2nd line. If inadequate response within 60 minutes, proceed to next-line agent for same PRN reason or contact provider if no further options ordered., Phase II/On Unit Or promethazine (PHENERGAN) 12.5 mg in sodium chloride 0.9 % (NS) 50 mL IVPB (Immediate Use Only)Jump to med 12.5 mg Every 6 hours PRN, intravenous, at 150 mL/hr, nausea, vomiting, Starting on Luanne 02/07/25 at 1229, 2nd line. Give IV if patient is unable to take orally. If inadequate response within 60 minutes, proceed to next-line agent for same PRN reason or contact provider if no further options ordered. , Phase II/On Unit documented in this encounter Care Teams Back Panel Padder Relationship Specialty Start Date End Date [facility], [facility] [place] [address] PCP - General 02/07/25 documented as of this encounter
--- OUTSIDE RECORDS SUMMARY | 2025-02-07 09:00 | XMS_ITS | Encounter Summary ---
Author Organization [employer] ([place], [place], [place], [place]) Address [address] [place] [address] Care Team Providers Care Pension Fund Manager Name Role Phone [facility], Find-A-Doc Primary Care Provider Reason for Visit * Auth/Cert (Routine) Specialty Diagnoses / Procedures Referred By Contac t Referred To Contact Diagnoses Osteoarthritis of right hip Osteoarthritis of right hip Procedures CT ARTHRP ACETBLR/PROX FEM PROSTC AGRFT/ALGRFT ARTHROPLASTY, HIP Joe Arellano MD [address] [place] [address] Phone: tel: fax: Referral ID Status Reason Start Date Expiration Date Visits Re quested Visits Authorized [id number] 01/22/2025 1 1 Encounter Details Date Type Department Care Team (Late st Contact Info) Description 02/07/2025 9:00 AM EDT - 02/07/2025 11:11 AM EDT Surgery [facility] Operating Room [address] [place] [phone] Joe Arellano MD [address] [place] [address] ARTHROPLASTY, HIP Social History Tobacco Use Types Packs/Day Years [...] Sign Reading Time Taken Comments Blood Pressure 189/102 02/07/2025 7:53 AM EDT did not take blood pressure medicine for three days Pulse 91 02/07/2025 7:53 AM EDT Temperature 36.4 C (97.5 F) 02/07/2025 7:53 AM EDT Respiratory Rate 18 02/07/2025 7:53 AM EDT Oxygen Saturation 97% 02/07/2025 7:5 3 AM EDT Inhaled Oxygen Concentration - - Weight [...] and ice pack, such as towel/pillow case -supervisor blast furnace auxiliaries stool softeners at your local pharmacy Call [...] as of this encounter Progress Notes * [facility] Novoaerd - 02/07/2025 3:20 PM EDT Images from [...] her/his documentation of Tom Solano. * Montserrat Alvares OTR/Jef - 02/07/2025 3:19 PM EDT Inpatient Occupational Therapy Initial Evaluation Patient Name: Tom Solano Date of : 1975 Date of Evaluation: 02/07/25 Start Time: 1435 Stop Time: 1511 Session Duration: 36 minutes Total time: 46 [...] Bathroom layout: Tub/shower unit Home equipment available: SERGIO brought patient a RW Functional Mobility PLOF: [...] at shoulder, elbow, and wrist. Coordination/Sensation Coordination: WFL Sensation: Right LE decreased secondary to anesthesia; [...] dressing:Moderate Assistance Toileting:DEMETRICE-Unable to assess Outcome Measures [facility] Daily Living Functional Assessment How much help [...] the patient's discharge summary. Electronically signed by Montserrat Alvares OTR/L - 02/07/2025 - 3:19 PM EDT * [...] for DME provider, Wants [facility] for . Referrral sent. Patient/family provided with [facility] approved choice list and Patient choice [...] 9:24 AM EDT NAME: Tom Solano CSN: [id number] : 1975 PCP: No primary care provider [...] factors include standing. Patient reports going to [facility] ED, where hereceived Flexeril but has not [...] your prescription refills for excessive abuse or custodial use. If necessary, you will be referred to animated cartoons painter. We will monitor your use of scheduled drugs through the GERI program. In addition, we will follow the monitoring procedures required by the [facility]. The side effects of Schedule II controlled [...] or patient care. Electronically Signed, CAMPOS Sesay Attestation: Olga Dodson PA-C examined, discussed diagnosis [...] 02/04/2025 9:25 AM EDT José Armijo: Boris BORDEN / MANUEL is undergoing an EHR transition as of [...] 9:24 AM EDT NAME: Tom Solano CSN: [id number] : 1975 PCP: No primary care provider [...] factors include standing. Patient reports going to [facility] ED, where hereceived Flexeril but has not [...] your prescription refills for excessive abuse or bite block maker use. If necessary, you will be referred to animated cartoons painter. We will monitor your use of scheduled drugs through the GERI program. In addition, we will follow the monitoring procedures required by the [facility]. 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 We started at size 1 and [...] tolerated the procedure well without any complications. /[id number] Joe Arellano MD ASC/AQ / ASC / AQS /[id number] documented in this encounter Plan of Treatment Upcoming Encounters Date Type Department Care Team (Late st Contact Info) Description 04/30/2025 10:45 AM EST Office Visit [facility] Orthopedics - [address] [phone] Joe Arellano MD [address] [place] [address] Scheduled Referrals Name Type Priority Associated Diagnoses Orde r Schedule Ambulatory referral to Home Health Outpatient Referral Routine Status post right hip replacement 02/07/25 Expected: 02/07/2025, Expires: 02/07/2026 documented as of this encounter Procedures Procedure Name Priority Date/Time Associated Diagnosis Comments XR HIP 2 VIEWS RIGHT STAT 02/07/2025 12:[address] ARTHRP ACETBLR/PROX FEM PROSTC AGRFT/ALGRFT 02/07/2025 9:38 AM EDT Osteoarthritis of right hip Case Notes 0700 TISSUE EXAM ([place]) AP Routine 02/07/2025 8:02 AM EDT Osteoarthritis [...] Yana Clark. Transcribed by Antonietta Daigle PA-C. us Joe [facility] ORDERAB LES Final Result * [...] ORDERABLES Final Result [facility] [address] [place] [address] documented in this encounter Visit Diagnoses Diagnosis Status post right hip replacement 02/07/25- Primary Osteoarthritis of right hip Status post right hip replacement 02/07/25 Osteoarthritis of right hip CODIE (obstructive sleep apnea) Obstructive sleep apnea (adult) (pediatric) HTN (hypertension) Unspecified essential hypertension Chronic obstructive pulmonary disease (HCC) Asthma Unspecified asthma Osteoarthritis of right hip documented in this encounter Admitting Diagnoses Diagnosis [...] no further options ordered., Phase II/On Unit sahyobdlyya-PZJ-gxfGHIywo- ketorolac (R.E.C.K.) 2.46-0.005-0.0008-0.3 mg/mL- 50 mL syringe in NS FOR PERIARTICULAR USE As needed, Starting on Luanne 02/07/25 at 1011, Intra-op Given 02/07/2025 10:11 AM EDT 100 mLs vancomycin (VANCOCIN) injection As needed, Starting on Luanne 02/07/25 at 1010, Intra-op Given 02/07/2025 10:10 AM EDT 1,000 mg Other vancomycin IVPB 2000 mg in sodium chloride [...] Prophylaxis 0937 (Given - Provid er: Hayley Satler CRNA) celecoxib (CeleBREX) capsule 200 mg (COMPLETED) [...] ointment 1 application. (COMPLETED) intraNASAL, Once, On Tue02/07/25 at 0800, For 1 dose, Preprocedure to both nares preoperatively, Pre-op 0805 (Given - Provid er: Mary Butler RN) pantoprazole (PROTONIX) EC tablet 40 mg 40 mg Daily, oral, First dose on Tue02/07/25 at 1300, * DO NOT CRUSH THIS DOSAGE FORM *, Phase II/On Unit 1300 (Due) polyethylene glycol (GLYCOLAX) packet 17 g 17 g Daily, oral, First dose on Tue02/07/25 at 1300, Bowel Regimen - for prevention of constipation., Phase II/On Unit 1300 (Due) sennosides (SENOKOT) tablet 17.2 mg 17.2 mg Every Night, oral, First dose on Tue02/07/25 at 2100, Bowel Regimen - for prevention of constipation., Phase II/On Unit vancomycin IVPB 2000 mg in sodium chloride 0.9% (NS) 500 mL (COMPLETED) 2,000 mg Once (rounded from 2,014.5 mg = 15 mg/kg 134.3 kg), intravenous, Administer over 120 Minutes, On Tue02/07/25 at 0800, For 1 dose, Administer within 60 minutes of incision. *Refrigerate*, Pre-op, Please choose an indication: Surgical Prophylaxis 0808 (IVPB Started - Provider: Mary Butler RN)1008 (Due: IVPB Stopped - Provider: Mary Butler RN) Continuous Medication Order 02/05/2025 02/06/2025 02/07/2025 lactated Ringer's infusion (CANCELED) 100 mL/hr Continuous, intravenous, Starting on Luanne 02/07/25 at 0800, Do not give simultaneously with ceftriaxone via a Y-site., Pre-op 0805 (New Bag - Prov ider: Mary Butler RN)0938 (Continued by Anesthesia - Provider: Hayley Salter [...] not received hydromorphone or morphine., Starting on Lunane 02/07/25 at 1058, For 1 dose, Look-alike/Sound-alike [...] no further options ordered., Phase II/On Unit feglntvfazh-GAX-vczRCTvhu-ketorola c (R.E.C.K.) 2.46-0.005-0.0008-0.3 mg/mL- 50 mL syringe [...] Unit documented in this encounter Care Teams Pension Fund Manager Relationship Specialty Start Date End Date [facility], Find-A-Doc [facility] [place] [address] PCP - General 02/07/25 documented as of this encounter
--- OUTSIDE RECORDS SUMMARY | 2025-02-07 09:38 | XMS_ITS | Encounter Summary ---
Author Organization [employer] ([place], [place], [place], [place]) Address [address] [place] [address] Care Team Providers Care Color Mixer Name Role Phone [facility] Connection, Find-A-Doc Primary Care Provider Reason for Visit * Auth/Cert (Routine) Specialty Diagnoses / Procedures Referred By Contac t Referred To Contact Diagnoses Osteoarthritis of right hip Osteoarthritis of right hip Procedures AL ARTHRP ACETBLR/PROX FEM PROSTC AGRFT/ALGRFT ARTHROPLASTY, HIP Joe Arellano MD [address] [place] [address] Phone: tel: fax: Referral ID Status Reason Start Date Expiration Date Visits Re quested Visits Authorized [id number] 01/22/2025 1 1 Encounter Details Date Type Department Care Team (Late st Contact Info) Description 02/07/2025 9:38 AM EDT Anesthesia Event [facility] Operating Room [address] [place] [phone] Hayley Salter CRNA Anesthesia Record Procedure Summary Procedure Name Responsible Anesthesiologist Anesthesia Start Time Anesthesia Stop Time ARTHROPLASTY, HIP (Right: Hip) Hayley Salter CRNA 02/07/25 0938 02/07/25 1142 Events Date Time Event Comment 02/07/2025 0745 0938 An Start Patient identif ied and chart reviewed. 0938 An Start Data Anesthesia mac emeka and monitors checked. 0943 Pre-Induction Eval FDA anest hesia machine pre-use checkout completed. Patient status reassessed prior to start of anesthesia care. 0943 An Induction 0946 An Intubation 0955 Anesthesia Ready 1138 An Extubation 1142 an stop data 1142 An Stop Meds Name Total dexamethasone (DECADRON) injection 4 mg/ mL 8 mg fentaNYL (SUBLIMAZE) injection 100 mcg glycopyrrolate (ROBINUL) injection 0.8 m g lidocaine (XYLOCAINE) injection 2% 40 mg midazolam (VERSED) injection 1 mg/ mL 2 mg neostigmine (PROSTIGMINE) 1 mg/mL inject ion 5 mg ondansetron (ZOFRAN) injection vial 4 mg propofol (DIPRIVAN) injection 10 mg/mL b olus 200 mg rocuronium (ZEMURON) 100 mg/10 mL inject ion 50 mg succinylcholine (ANECTINE) 20 mg/mL inje ction 200 mg tranexamic acid (CYKLOKAPRON) injection 2,000 mg ceFAZolin (ANCEF) 3 g in sodium chloride 0.9% (NS) 100 mL (PMX) IVPB 3 g vancomycin IVPB 2000 mg in sodium chlori de 0.9% (NS) 500 mL 0 mg hydromorphone (DILAUDID) injection 1 mg/ mL 0.5 mg lactated Ringer's infusion 1,000 mL * Agents Name O2 N2O Air SEVOFLURANE * Blood No blood administrations on file. Lines, Drains, and Airways Type Details Placement Removal Wound 02/07/25; 1034; Inci chidi; Hip; Right 02/07/25 1034 by Lolly Arriola RN Peripheral IV Placement Date: 01/19 07/14; Placement Time: 0748; Size: 20 G; Orientation: Left, Posterior; Location: Hand; Site Prep: Alcohol; Local Anesthetic: None; Inserted by: Trudi Rand RN; Insertion attempts: 1; Securement Method: Taped, Skin barrier; Removal Date: 02/07/25; Removal Time: 15202/07/25 0748 by Mary Butler RN 02/07/25 1522 by Estrella Thomason RN Peripheral IV Placement Date: 01/19 07/14; Placement Time: 08; Size: 20 G; Orientation: Anterior, Left, Proximal; Location: Forearm; Site Prep: Chlorhexidine ; Insertion attempts: 2; Securement Method: Taped; Removal Date: 02/07/25; Removal Time: 15202/07/25 0806 by Mary Butler RN 02/07/25 1523 by Estrella Thomason RN ETT Placement Date 02/07; Placement Time 09 (created via procedure documentation); Airway Size 7.5; Airway Cuffed Yes; Removal Date 02/07/25; Removal Time 1138 02/07/25 0946 by Hayley Salter CRNA 02/07/25 1138 by Hayley Salter CRNA documented in this encounter Social History Tobacco Use Types Packs/Day Years [...] on file documented as of this encounter OR Notes * Anesthesia Postprocedure Evaluation - Hayley Salter CRNA - 02/07/2025 11:48 AM EDT Patient: Tom Solano Procedure Summary Date: 02/07/25 Room / Location: [facility] OR [address] [place] [address] OPERATING ROOM Anesthesia Start: 937 Anesthesia Stop: Procedure: ARTHROPLASTY, HIP (Right: Hip) Diagnosis: Osteoarthritis of right hip (Osteoarthritis of right hip) Surgeons: Joe Arellano MD Responsible Provider: Hayley Salter CRNA Anesthesia Type: general, spinal ASA Status: 3 Anesthesia Type: general, spinal Vitals Value Taken Time BP 161/90 02/07/25 1147 Temp 98.4 02/07/25 1148 Pulse 87 02/07/25 1147 Resp 16 02/07/25 1147 SpO2 96 % 02/07/25 1147 Vitals shown include unfiled device data. Ht 1.905 m (6' 3 ) Wt 128.5 kg (283 lb 6.4 oz) BMI 35.42 kg/m?? Anesthesia Post Evaluation Patient location during evaluation: PACU Patient participation: waiting for patient participation Level of consciousness: sleepy but conscious Pain management: adequate Multimodal analgesia pain management approach Airway patency: positional obstruction Two or more strategies used to mitigate risk of obstructive sleep apnea Cardiovascular status: acceptable, blood pressure returned to baseline and hypertensive Respiratory status: spontaneous ventilation, face mask and oral airway Hydration status: acceptable Color: [place] Activity: Moves 4 extremities Inotropes/Vasopressors: N/A No notable events documented. Hayley Salter CRNA 02/07/2025 11:48 AM EDT * Anesthesia Procedure Notes - Hayley Salter CRNA - 02/07/2025 10:02 AM EDT Associated Order(s): Intubation Intubation Authorized by: Hayley Salter CRNA Performed by: Hayley Salter CRNA Date/Time: 02/07/2025 9:46 AM Urgency: elective Indications and Patient Condition Indications for airway management: anesthesia and airway protection Spontaneous ventilation: present Sedation level: general anesthesia Preoxygenated: yes Patient position: sniffing Mask difficulty assessment: 1 - vent by mask Planned trial extubation: yes Final Airway Details Final airway type: endotracheal airway Endotracheal tube type: ETT Cuffed: yes Successful intubation technique: direct laryngoscopy Facilitating devices/methods: intubating stylet and anterior pressure/BURP Endotracheal tube insertion site: oral Blade: Rosie Blade size: #4 ETT size (mm): 7.5 Cormack-Lehane Classification: grade I - full view of glottis Placement verified by: chest auscultation and capnometry Measured from: maliha Number of attempts at approach: 2 Additional Comments Initial attempt by Beulah ROSEN, 2nd attempt by Hayley Salter CRNA with success. * Anesthesia Preprocedure Evaluation - Jose Joya MD - 02/07/2025 7:45 AM EDT Anesthesia Pre Evaluation Mr. Tom Solano is a 49 y.o. male being evaluated for the following: Date/Time: 02/07/25 0900 Procedure: ARTHROPLASTY, HIP (Right) Location: [facility] OR OPERATING ROOM Surgeons: Joe Arellano MD Relevant Problems ANESTHESIA (+) CODIE (obstructive sleep apnea) (No cpap ) CARDIOVASCULAR (+) HTN (hypertension) ENDOCRINE (within normal limits) GASTROINTESTINAL (within normal limits) /RENAL (within normal limits) NEURO/PSYCH (within normal limits) RESPIRATORY SYSTEM (+) Asthma (+) Chronic obstructive pulmonary disease (HCC) Other (+) Osteoarthritis of right hip Clinical information reviewed: NPO Status No data recorded Physical Exam Airway Mallampati: III TM distance: >3 FB Neck ROM: full Cardiovascular - normal exam Dental - normal exam Pulmonary - normal exam Abdominal - normal exam Anesthesia Plan ASA 3 Planned anesthetic: general and spinal Anesthesia Plan Factors- The patient is not a current smoker. Induction: intravenous Postoperative Plan- Postoperative administration of opioids is intended. Trial extubation is planned. Informed Consent- Anesthetic plan and risks discussed with patient. Blood Consent- Use of blood products discussed with patient who. Plan discussed with INSPECTOR WIRE ROPE. documented in this encounter Plan of Treatment Upcoming Encounters Date Type Department Care Team (Late st Contact Info) Description 04/30/2025 10:45 AM EST Office Visit [facility] Orthopedics - [address] [phone] Joe Arellano MD [address] [place] [phone] documented as of this encounter Procedures Procedure Name Priority Date/Time Associated Diagnosis Comments ANESTHESIA INTUBATION Routine 02/07/2025 9:46 AM EDT documented in this encounter Results * AN SINGLE LUMEN INTUBATION (02/07/2025 9:46 AM EDT) Hayley Greenfield CRNA - 02/07/2025 9:46 AM EDT Hayley Salter CRNA 02/07/2025 10:03 AM Intubation Authorized by: Hayley Salter CRNA Performed by: Hayley Salter CRNA Date/Time: 02/07/2025 9:46 AM Urgency: elective Indications and Patient Condition Indications for airway management: anesthesia and airway protection Spontaneous ventilation: present Sedation level: general anesthesia Preoxygenated: yes Patient position: sniffing Mask difficulty assessment: 1 - vent by mask Planned trial extubation: yes Final Airway Details Final airway type: endotracheal airway Endotracheal tube type: ETT Cuffed: yes Successful intubation technique: direct laryngoscopy Facilitating devices/methods: intubating stylet and anterior pressure/BURP Endotracheal tube insertion site: oral Blade: Rosie Blade size: #4 ETT size (mm): 7.5 Cormack-Lehane Classification: grade I - full view of glottis Placement verified by: chest auscultation and capnometry Measured from: gums Number of attempts at approach: 2 Additional Comments Initial attempt by Beulah ROSEN, 2nd attempt by Hayley Salter CRNA with success. Hayley Salter CRNA ANESTHESIA ORDERABLES Final Result documented in this encounter Visit Diagnoses Not on filedocumented in this encounter Administered Medications Inactive Administered Medications - up to 3 most recent administrations Medication Order MAR Action Action Date Dose Rate Site ceFAZolin (ANCEF) 3 g in sodium chloride 0.9% (NS) 100 mL (PMX) IVPB 3 g Once, intravenous, Administer over 60 Minutes, On Luanne 02/07/25 at 0800, For 1 dose, Cefazolin 2g adjusted to cefazolin 3g for weight >120kg, Please choose an indication: Surgical Prophylaxis Given 02/07/2025 9:37 AM EDT 3 g dexAMETHasone (DECADRON) injection As needed, intravenous, Starting on Luanne 02/07/25 at 0958, Anesthesia Intra-op Given 02/07/2025 9:58 AM EDT 8 mg fentaNYL PF (SUBLIMAZE) injection As needed, intravenous, Starting on Luanne 02/07/25 at 0959, Anesthesia Intra-op Given 02/07/2025 9:59 AM EDT 50 mcg Given 02/07/2025 9:43 AM EDT 50 mcg glycopyrrolate (ROBINUL) injection As needed, intravenous, Starting on Luanne 02/07/25 at 1118, Anesthesia Intra-op Given 02/07/2025 11:18 AM EDT 0.8 mg HYDROmorphone (DILAUDID) injection As needed, intravenous, Starting on Luanne 02/07/25 at 1004, Anesthesia Intra-op Given 02/07/2025 10:04 AM EDT 0.5 mg lactated Ringer's infusion 100 mL/hr Continuous, intravenous, Starting on Luanne 02/07/25 at 0800, Do not give simultaneously with ceftriaxone via a Y-site., Pre-op New Bag 02/07/2025 11:39 AM EDT Continued by Anesthesia 02/07/2025 9:38 AM EDT 100 mL/hr New Bag 02/07/2025 8:05 AM EDT 100 mL/hr 100 mL/hr lidocaine (XYLOCAINE) injection 2% As needed, intravenous, Starting on Luanne 02/07/25 at 0943, Anesthesia Intra-op Given 02/07/2025 9:43 AM EDT 40 mg midazolam (VERSED) injection As needed, intravenous, Starting on Luanne 02/07/25 at 0937, Anesthesia Intra-op Given 02/07/2025 9:37 AM EDT 2 mg neostigmine methylsulfate (PROSTIGMINE) injection As needed, intravenous, Starting on Luanne 02/07/25 at 1118, Anesthesia Intra-op Given 02/07/2025 11:18 AM EDT 5 mg ondansetron (ZOFRAN) injection As needed, intravenous, Starting on Luanne 02/07/25 at 1000, Anesthesia Intra-op Given 02/07/2025 10:00 AM EDT 4 mg propofol (DIPRIVAN) injection 10 mg/mL bolus As needed, intravenous, Starting on Luanne 02/07/25 at 1004, Anesthesia Intra-op Given 02/07/2025 9:43 AM EDT 200 mg rocuronium (ZEMURON) injection As needed, intravenous, Starting on Luanne 02/07/25 at 0943, Anesthesia Intra-op Given 02/07/2025 9:47 AM EDT 45 mg Given 02/07/2025 9:43 AM EDT 5 mg succinylcholine (ANECTINE) injection As needed, intravenous, Starting on Luanne 02/07/25 at 0943, Anesthesia Intra-op Given 02/07/2025 9:43 AM EDT 200 mg tranexamic acid (CYKLOKAPRON) injection As needed, intravenous, Starting on Luanne 02/07/25 at 0957, Anesthesia Intra-op Given 02/07/2025 10:46 AM EDT 1,000 mg Given 02/07/2025 9:57 AM EDT 1,000 mg documented in this encounter Care Teams Color Mixer Relationship Specialty Start Date End Date [facility] Connection, Find-A-Doc [facility] [place] [address] PCP - General 02/07/25 documented as of this encounter
--- OUTSIDE RECORDS SUMMARY | 2025-02-19 08:45 | XMS_ITS | Encounter Summary ---
Author Organization [employer] ([place], [place], [place], [place]) Address [address] [place] [address] Care Team Providers Care Chairman Of The Board Name Role Phone [facility], Find[facility] Primary Care Provider Reason for Visit * Reason Comments Post-Op Follow-up s/p Right total hip arthroplasty DOS 8..25. Encounter Details Date Type Department Care Team (Late st Contact Info) Description 02/19/2025 8:45 AM EDT Office Visit [facility] Orthopedics - [address] [phone] Joe Arellano MD [address] [place] [address] S/P total right hip arthroplasty (Primary Dx) Social History Tobacco Use Types Packs/Day Years [...] Sign Reading Time Taken Comments Blood Pressure 148/94 02/19/2025 9:21 AM EDT Pulse 99 02/19/2025 9:21 AM EDT Temperature - - Respiratory Rate - - Oxygen Saturation - - Inhaled Oxygen Concentration - - Weight 128.4 kg (283 lb) 02/19/2025 9:19 AM EDT Height 190.5 cm (6' 3 ) 02/19/2025 9:19 AM EDT Body Mass Index 35.37 02/19/2025 9:19 AM EDT documented in this encounter Progress Notes * Joe Arellano MD - 02/19/2025 8:45 AM EDT NAME: Tom Solano CSN: [id number] : 1975 PCP: [facility] REASON FOR VISIT Post-Op Follow-up (s/p Right total hip arthroplasty DOS 8..) Is this Worker's Comp? No HPI Tom Solano is a 49 y.o. male Patient presents for a post-op follow-up s/p Right total hip arthroplasty DOS 8.. They state that their symptoms have improved. They state that they are attending PT. They are attending PT at home. They deny any new injuries or complications. They state that they are taking oral pain medication. They state that they do require a refill of pain medication. They state that they do not need a work excuse. They do not report signs of infection. They rate the severity of their pain today as: 10/10. Patient reports pain is worse at night and reports difficulty sleeping. Patient ambulates with a walker. CURRENT MEDICATIONS Current Outpatient Medications Medication Instructions albuterol (Ventolin HFA) 90 mcg/actuation inhaler 2 puffs, Every 4 hours budesonide-formoteroL (SYMBICORT) 160-4.5 mcg/actuation inhaler INHALE TWO (2) PUFFS TWICE DAILY famotidine (PEPCID) 40 mg, Daily fluticasone propionate (FLONASE) 50 mcg/actuation nasal spray SQUIRT ONE SPRAY IN EACH NOSTRIL EVERY DAY hydrOXYzine (ATARAX) 25-50 mg, Every Night lidocaine (LIDODERM) 5 % ptmd patch 1 patch, Daily losartan (COZAAR) 50 mg, Daily meloxicam (MOBIC) 15 mg, oral, Daily oxyCODONE (ROXICODONE) 10 mg, oral, Every 6 hours PRN pantoprazole (PROTONIX) 40 mg, oral, Daily prazosin (MINIPRESS) 1 mg, Daily traZODone (DESYREL) 50 mg, Daily ALLERGIES No Known Allergies PAST MEDICAL/SURGICAL HISTORY Past Medical History: Diagnosis Date Asthma Closed left arm fracture COPD (chronic obstructive pulmonary disease) (HCC) Femur fracture, left (HCC) GERD (gastroesophageal reflux disease) Hyperlipidemia Hypertension MRSA infection 01/2025 CODIE (obstructive sleep apnea) MACHINE NONCOMPLIANCE Past Surgical History: Procedure Laterality Date ARTHROPLASTY,HIP Right 02/07/2025 Procedure: ARTHROPLASTY, HIP; Surgeon: Joe Arellano MD; Location: [facility]; Service: Orthopedic Surgery; Laterality: Right; ELBOW FRACTURE SURGERY Left X2 FEMUR FRACTURE SURGERY SOCIAL HISTORY Social History [...] depression, no anxiety, no fatigue, no mood swings. Scribe Attestation: Ana Dodson CMA acted as a scribe and transcribed components of the current encounter under the direction of the Attending Provider. I have not been involved in providing any clinical treatments or patient care. Electronically Signed, Ana De Leon CMA OBJECTIVE Vitals: 02/19/25 0919 02/19/25 0921 BP: (!) 167/105 (!) 148/94 Pulse: 101 99 Weight: 128.4 kg (283 lb) Height: 1.905 m (6' 3 ) Physical Exam Vitals reviewed. Constitutional: Appearance: Normal appearance. HENT: Head: Normocephalic and atraumatic. Skin: General: Skin is warm and dry. Capillary Refill: Capillary refill takes less than 2 seconds. Findings: No bruising or erythema. Neurological: Mental Status: alert and oriented to person, place, and time. Gait: Gait abnormal. Psychiatric: Mood and Affect: Mood normal. Behavior: Behavior normal. Ortho Exam Right Hip Exam General: Awake, Alert, Oriented x3, Well developed Appearance: Swelling WNL, - deformity, equal leg lengths Palpation: Tender to palpation over incision ROM: Decreased internal and external ROM Strength: 4/5 Neurovascular: NVI, -Homans Skin: dressing intact without obvious drainage or erythema Gait: Abnormal ambulating with walker IMAGING/OUTSIDE REPORTS X-Rays were performed and interpreted today in office of right hip, 2 views weight bearing revealing: XR hip 2 views right Narrative: HISTORY: chronic hip pain Impression: maintained hip hardware without signs of loosening, no acute bony abnormalities. Images personally reviewed and dictated by Sixto Kent PA-C under direct supervision of Dr. Joe Arellano in office today. ASSESSMENT Problem List Items Addressed This Visit None Visit Diagnoses S/P total right hip arthroplasty - Primary Relevant Orders XR hip 2 views right (Completed) PLAN Return in about 4 weeks (around 03/19/2025) for re-eval RTHA 02/07/25. Rest Ice Elevate Return to Clinic if new or worse symptoms occur Watch for s/s of infection return to clinic if seen Physical Therapy continue Do not drive until off walker and pain medication Wear compression hose on surgery leg only during day Pain medication ( oxycodone 10 ) refill today primary plus [facility] script for a cane Scribe Attestation: Farida Dodson RTR acted as a scribe and transcribed components of the current encounter under the direction of the Attending Provider. I have not been involved in providing any clinical treatments or patient care. Electronically SignedFarida RTR PA Attestation: Sixto Dodson PA-C examined, discussed diagnosis and treatment options, acted as a scribe and transcribed components of the current encounter under the direction of the AttendingProvider. Electronically SignedSixto PA-C 02/19/2025 Sixto Kent PA-C scribing for Joe Arellano MD I, Anup S. Chattha, MD, have read and agree with the documentation that has been completed regarding this visit. By signing this record, I attest that the documentation was completed in my physical presence and is an accurate record of the encounter. Electronically Signed, Joe Arellano MD 02/19/2025 9:49 AM EDT José Armijo: Boris BORDEN / [...] the patient (and/or the patient's family member). documented in this encounter Plan of Treatment Upcoming Encounters Date Type Department Care Team (Late st Contact Info) Description 04/30/2025 10:45 AM EST Office Visit [facility] - [address] [phone] Joe Arellano MD [address] [place] [address] documented as of this encounter Results * XR hip 2 views right (02/19/2025 9:18 AM EDT) Anatomical Region Laterality Modality Pelvis X-Ray Impressions 02/19/2025 9:47 AM EDT maintained hip hardware without signs of loosening, no acute bony abnormalities. Images personally reviewed and dictated by Sixto Kent PA-C under direct supervision of Dr. Joe Arellano in office today. Narrative 02/19/2025 9:47 AM EDT HISTORY: chronic hip pain us Joe Arellano MD IMG DIAGNOSTIC IMAGING ORDERAB LES Final Result documented in this encounter Visit Diagnoses Diagnosis S/P total right hip arthroplasty- Primary S/P total right hip arthroplasty documented in this encounter Care Teams Chairman Of The Board Relationship Specialty Start Date End Date [facility], [facility] [place] [address] PCP - General 02/07/25 documented as of this encounter
--- OUTSIDE RECORDS SUMMARY | 2025-02-19 09:15 | XMS_ITS | Encounter Summary ---
Author Organization [employer] ([place], [place], [place], [place]) Address [address] [place] [address] Care Team Providers Care Bar Finish Operator Name Role Phone [facility], Find-A-Doc Primary Care Provider Encounter Details Date Type Department Care Team (Late st Contact Info) Description 02/19/2025 9:15 AM EDT Ancillary Procedure [address] [phone] Joe Arellano MD [address] [place] [address] S/P total right hip arthroplasty Social History Tobacco Use Types Packs/Day Years [...] on file documented as of this encounter Plan of Treatment Upcoming Encounters Date Type Department Care Team (Late st Contact Info) Description 04/30/2025 10:45 AM EST Office Visit [address] [phone] Joe Arellano MD [address] [place] [address] documented as of this encounter Procedures Procedure Name Priority Date/Time Associated Diagnosis Comments XR HIP 2 VIEWS RIGHT Routine 02/19/2025 9:18 AM EDT S/P total right hip arthroplasty documented in this encounter Results * XR [...] Visit Diagnoses Diagnosis S/P total right hip arthroplasty documented in this encounter Care Teams Bar Finish Operator Relationship Specialty Start Date End Date [facility], Find[facility]Doc [facility] [place] [address] PCP - General 02/07/25 documented as of this encounter
--- OUTSIDE RECORDS SUMMARY | 2025-03-19 10:30 | XMS_ITS | Encounter Summary ---
Author Organization [employer] ([place], [place], [place], [place]) Address [address] [place] [address] Care Team Providers Care Tooth Cutter Spur Name Role Phone [facility], Find[facility]A-Doc Primary Care Provider Reason for Visit * Reason Comments Follow-up s/p Right total hip arthroplasty DOS 8.21.25 Encounter Details Date Type Department Care Team (Late st Contact Info) Description 03/19/2025 10:30 AM EDT Office Visit [facility] Orthopedics - [address] [phone] Olga Carter PA-C [address] [place] [address] S/P total right hip arthroplasty (Primary [...] Sign Reading Time Taken Comments Blood Pressure 158/107 03/19/2025 11:12 AM EDT Pulse 96 03/19/2025 11:12 AM EDT Temperature - - Respiratory Rate - - Oxygen Saturation - - Inhaled Oxygen Concentration - - Weight 128.8 kg (284 lb) 03/19/2025 11:05 AM EDT Height 190.5 cm (6' 3 ) 03/19/2025 11:05 AM EDT Body Mass Index 35.5 03/19/2025 11:05 AM EDT documented in this encounter Progress Notes * Olga Carter PA-C - 03/19/2025 10:30 AM EDT NAME: Tom Solano CSN: [id number] : 1975 PCP: [facility] REASON FOR VISIT Follow-up (s/p Right total hip arthroplasty DOS 02.07.25) Is this Worker's Comp? No HPI History of Present Illness Tom Solano is a 49 year old male who presents for follow-up after hip replacement surgery. He is approximately six weeks post-operative from a hip replacement surgery. He feels 'decent' with someresidual pain, particularly in the mornings when getting out of bed, which causes stiffness and difficulty walking. He rates his improvement at about 60-75%. He continues to experience incisional andmuscular pain, primarily in the quadriceps and groin area, especially after sitting for long periods. He notes occasional pulling sensations when moving quickly. He reports increased range of motion compared to before the surgery, with more movement in flexion and internal and external rotation. For pain management, he has been taking oxycodone, typically one in the morning before getting out of bed. He also uses Tylenol and has been prescribed ibuprofen 800 mg, which he takes as needed. He is not currently working and does not require a work note. He is engaged in physical therapy exercises at home, focusing on strengthening the gluteal muscles. Some soreness in the quadriceps and gluteal muscles, particularly after prolonged sitting or standing. Patient presents for follow-up s/p Right total hip arthroplasty DOS 8. He reports that he is improving slowly. He states that he finished his last PT visit last week. He reports that his pain is primarily after sitting for long periods of time and first thing in the morning. He denies any fevers or chills. He states that he is taking oxycodone as prescribed. He rates his pain as a 7- 8/10 atthis time. Interval HPI 02/19/25: Patient presents for a post-op follow-up s/p Right total hip arthroplasty DOS 8.21.25. They state that their symptoms have improved. [...] patch, Daily losartan (COZAAR) 50 mg, Daily prazosin (MINIPRESS) 1 mg, Daily traZODone [...] ARTHROPLASTY, HIP; Surgeon: Joe Arellano MD; Location: [facility]; Service: Orthopedic Surgery; Laterality: Right; ELBOW FRACTURE [...] no anxiety, no fatigue, no mood swings OBJECTIVE Vitals: 03/19/25 1105 03/19/25 1112 BP: (!) 173/124 (!) 158/107 Pulse: 96 96 Weight: 128.8 kg (284 lb) Height: 1.905 m (6' 3 ) Body mass index is 35.5 kg/m??. Physical Exam MUSCULOSKELETAL: Hip flexion strength normal. IR and ER limited Vitals reviewed. Constitutional: Appearance: Normal appearance. HENT: [...] ROM Strength: 4/5 Neurovascular: NVI, -Homans Skin: incision well-healing Gait: Abnormal ambulating with walker IMAGING/OUTSIDE REPORTS Imaging reviewed today in office from previous encounter Results ASSESSMENT/PLAN Problem List Items Addressed This Visit None Visit Diagnoses S/P total right hip arthroplasty - Primary Assessment & Plan Status post right total hip arthroplasty with postoperative pain Six to eight weeks post-surgery with incisional and muscular pain, primarily in quadriceps and gluteal muscles. Stiffness after sitting and morning ambulation difficulty noted. Pain managed with oxycodone, ibuprofen, and acetaminophen. Activity beneficial, minimal dislocation risk. Antibiotic prophylaxis advised before dental procedures. - Continue physical therapy for gluteal strengthening and range of motion. - Administer acetaminophen and ibuprofen morning and evening. - Discontinue oxycodone as pain manageable with acetaminophen and ibuprofen. - Notify provider if pain becomes unmanageable. - Schedule follow-up in six weeks with Dr. Patrick. - Inform provider before dental cleanings for antibiotic prophylaxis. ABRIDGE CONSENT The following consent language was reviewed verbally with the patient in full: Luis Fernando, I am using a tool to help me do my notes. It is recording our conversation and creates my notes automatically and I can focus on our discussion instead of typing in the room. Is that okay with you? The patient demonstrated understanding and verbally agreed to the above consent language. All questions were addressed, and the patient provided informed consent to proceed. Scribe Attestation: IFarida RTR acted as a scribe and transcribed components of the current encounter under the direction of the Attending Provider. I have not been involved in providing any clinical treatments or patient care. Electronically Signed, CAMPOS Camacho Claire Kasberg, PA-C attest that I have examined the above patient. I have dictated the exam, diagnosis, and plan to the scribe listed above to be transcribed into this document. I have supplemented the above documentation as warranted. I attest that I have reviewed the above documentation in its entirety and concur. Electronically Signed, Olga Carter PA-C 03/19/2025 11:30 AM EDT documented in this encounter Plan of Treatment Upcoming Encounters Date Type Department Care Team (Late st Contact Info) Description 04/30/2025 10:45 AM EST Office Visit [facility] Orthopedics - [address] [phone] Joe Arellano MD [address] [place] [address] documented as of this encounter Visit Diagnoses Diagnosis S/P total right hip arthroplasty- Primary documented in this encounter Care Teams Tooth Cutter Spur Relationship Specialty Start Date End Date [facility], Find[facility]Doc [facility] [place] [address] PCP - General 02/07/25 documented as of this encounter
[2025-03-24 18:50] VITALS: BP 162/84; PULSE 112; RESP 22; TEMP 37.3; O2SAT 99; BMI 36.2
--- OUTSIDE RECORDS SUMMARY | 2025-03-24 18:53 | XMS_ITS | Encounter Summary ---
Author Organization [employer] ([place], [place], [place], [place]) Address [address] [place] [address] Care Team Providers Care Field Service Consultant Name Role Phone Unavailable Primary Care Provider Unavailabl e Encounter Details Date Type Department Care Team (Late Contact Info) Description 02/01/2025 Orders Only [address] [phone] Lilia Dunn PA-C [address] [place] [address] Primary osteoarthritis of right hip (Primary Dx); Positive result for methicillin resistant Staphylococcus aureus (MRSA) screening Social History Tobacco Use Types Packs/Day Years [...] Description 04/30/2025 10:45 AM EST Office Visit [address] [phone] Joe Arellano MD [address] [place] [address] documented as of this encounter Visit Diagnoses Diagnosis Primary osteoarthritis of right hip- Primary Positive result for methicillin resistant Staphylococcus aureus (MRSA) screening documented in this encounter
--- OUTSIDE RECORDS SUMMARY | 2025-03-24 18:53 | XMS_ITS | Encounter Summary ---
Author Organization [employer] ([place], [place], [place], [place]) Address [address] [place] [address] Care Team Providers Care Pipe Fitter Supervisor Name Role Phone Unavailable Primary Care Provider Unavailabl e Reason for Visit * Reason Onset Date Comments schedule ortho class 01/28/2025 Encounter Details Date Type Department Care Team (Late Contact Info) Description 01/28/2025 Telephone [facility] [address] [address] Sobeida Lemon RN schedule ortho class Social History Tobacco Use Types Packs/Day Years [...] on file documented as of this encounter Miscellaneous Notes * Telephone Encounter - Sobeida [facility] RN - 01/28/2025 2:43 PM EDT No answer, left message documented in this encounter Plan of Treatment Upcoming Encounters Date Type Department Care Team (Late Contact Info) Description 04/30/2025 10:45 AM EST Office Visit [facility] Orthopedics - [address] [phone] Joe Arellano MD [address] [place], [place] [phone] documented as of this encounter Visit Diagnoses Not on filedocumented in this encounter
--- OUTSIDE RECORDS SUMMARY | 2025-03-24 18:53 | XMS_ITS | Clinical Summary ---
Author Organization [employer] ([place], [place], [place], [place]) Address [address] [place] [address] Care Team Providers Care Barrel Charrer Name Role Phone [facility] Connection, Find-A-Doc Primary Care Provider Allergies No known active allergies Medications albuterol (Ventolin HFA) 90 mcg/actuation inhaler Inhale 2 puffs by mouth every 4 (four) hours. Active famotidine (PEPCID) 40 MG tablet Take 1 tablet (40 mg total) by mouth daily. 5 Active fluticasone propionate (FLONASE) 50 mcg/actuation nasal spray SQUIRT ONE SPRAY IN EACH NOSTRIL EVERY DAY Active hydrOXYzine (ATARAX) 25 MG tablet Take 1-2 tablets (25-50 mg total) by mouth nightly. 5 Active losartan (COZAAR) 50 MG tablet Take 1 tablet (50 mg total) by mouth daily. 5 Active prazosin (MINIPRESS) 1 MG capsule Take 1 capsule (1 mg total) by mouth daily. 5 Active traZODone (DESYREL) 50 MG tablet Take 1 tablet (50 mg total) by mouth daily. 5 Active lidocaine (LIDODERM) 5 % ptmd patch Place 1 patch on the skin daily Remove & Discard patch within 12 hours or as directed by MD. Active budesonide-form oteroL (SYMBICORT) 160-4.5 mcg/actuation inhaler INHALE TWO (2) PUFFS TWICE DAILY Active pantoprazole (PROTONIX) 40 MG tablet Take 1 tablet (40 mg total) by mouth daily for 30 days. 30 tablet 5 03/09/20 25 meloxicam (MOBIC) 15 MG tablet Take 1 tablet (15 mg total) by mouth daily for 30 doses. 30 tablet 5 03/09/20 25 oxyCODONE (ROXICODONE) 10 MG tablet Take 1 tablet (10 mg total) by mouth every 6 (six) hours as needed for up to 7 days. Max Daily Amount: 40 mg 28 tablet 5 03/06/20 25 Discontinue d(Reorder) oxyCODONE (ROXICODONE) 10 MG tablet Take 1 tablet (10 mg total) by mouth every 8 (eight) hours as needed for up to 7 days. Max Daily Amount: 30 mg 21 tablet 5 03/13/20 25 Active Problems Problem Noted Date Diagnosed Date CODIE (obstructive sleep apnea) 02/07/2025 HTN (hypertension) 02/07/2025 Chronic obstructive pulmonary disease 02/07/2025 Asthma 02/07/2025 Status post right hip replacement 02/07/252024 Overview (02/07/2025): DOS 02/07/[address] Arellano Resolved Problems Problem Noted Date Diagnosed Date Resolved Date Osteoarthritis of right hip 01/22/2025 02/07/2025 Encounters Date Type Department Care Team Description 03/19/2025 10:30 AM EDT Office Visit [address] [address] Olga Carter PA-C S/P total right hip arthroplasty (Primary Dx) 03/06/2025 Orders Only [address] [address] Joe Arellano MD 03/05/[address] [address] Joe Arellano MD Medication Refill 02/25/2025 Telephone [facility] [address] [place] [phone] Sobeida Weber RN Post-Op Follow-up 02/25/2025 Telephone [facility] [address] [place] [phone] Sobeida Weber RN Post-Op Follow-up 02/19/2025 9:15 AM EDT Ancillary Procedure [facility] [address] [address] Joe Arellano MD S/P total right hip arthroplasty 02/19/2025 8:45 AM EDT Office Visit [facility] [address] Joe Arellano MD S/P total right hip arthroplasty (Primary Dx) 02/07/2025 9:38 AM EDT Anesthesia Event [facility] Operating Room [address] [place] [phone] Hayley Salter, SABRINA 02/07/2025 9:00 AM EDT - 02/07/2025 11:11 AM EDT Surgery [facility] Operating Room [address] [place] [phone] Joe Arellano MD ARTHROPLASTY, HIP 02/07/2025 7:12 AM EDT - 02/07/2025 3:35 PM EDT Hospital Encounter [facility] Operating Room [address] [place] [phone] Joe Arellano MD Status post right hip replacement 02/07/25 (Primary Dx); Osteoarthritis of right hip Discharge Disposition: Home or Self Care 02/07/2025 Travel 02/05/2025 1:00 PM EDT - 02/05/2025 11:59 PM EDT Hospital Encounter [facility] Preadmissions Testing [address] [place] [phone] Discharge Disposition: Home or Self Care 02/05/2025 Travel 02/01/2025 Orders Only [facility] [address] [phone] Lilia Dunn PA-C Primary osteoarthritis of right hip (Primary Dx); Positive result for methicillin resistant Staphylococcus aureus (MRSA) screening 01/28/2025 Telephone [facility] [address] [address] Sobeida Weber RN schedule ortho class 01/22/2025 9:00 AM EDT Ancillary Procedure [address] [address] Joe Arellano MD 01/22/2025 8:30 AM EDT Office Visit [address] [phone] Joe Arellano MD Primary osteoarthritis of right hip (Primary Dx); Osteoarthritis of right hip 01/22/2025 Orders Only [address] [address] Joe Arellano MD Pre-op exam (Primary Dx) from Last 3 Months Family History Medical History Relation Name Comments Arthritis Father Cancer Father Hyperlipidemia Father Diabetes Maternal Grandmother Arthritis Mother Cancer Mother Hyperlipidemia Mother Relation Name Status Comments Father Maternal Grandmother Mother Social History Tobacco Use Types Packs/Day Years Used Date Smoking Tobacco: Never Smokeless Tobacco: Current Tobacco Cessation:Ready to Q uit: Not Asked; Counseling Given: Not Answered Alcohol Use Standard Drinks/Week Comments Never 0 (1 standard drink = 0.6 oz pur e alcohol) Sex and Gender Information Value Date Recorded Sex Assigned at Not on file Legal Sex Male 2:06 PM CDT Gender Identity Not on file Sexual Orientation Not on file Last Filed Vital Signs Vital Sign Reading Time Taken Comments Blood Pressure 158/107 03/19/2025 11:12 AM EDT Pulse 96 03/19/2025 11:12 AM EDT Temperature 36.6 C (97.8 F) 02/07/2025 12:27 PM EDT Respiratory Rate 17 02/07/2025 12:27 PM EDT Oxygen Saturation 95% 02/07/2025 12:27 PM EDT Inhaled Oxygen Concentration - - Weight 128.8 kg (284 lb) 03/19/2025 11:05 AM EDT Height 190.5 cm (6' 3 ) 03/19/2025 11:05 AM EDT Body Mass Index 35.5 03/19/2025 11:05 AM EDT Plan of Treatment Upcoming Encounters Date Type Department Care Team (Late st Contact Info) Description 04/30/2025 10:45 AM EST Office Visit [facility] Orthopedics - [address] [address] Joe Arellano MD [address] [place] [address] Health Maintenance Due Date Last Done Comments CT Colonography 1977 Colonoscopy 1977 Colorectal Cancer Screening 1977 FOBT/FIT 1977 Fit-DNA (Cologuard) 1977 Sigmoidoscopy 1977 Depression Screening (12+) 1989 Tobacco Cessation Counseling and Screening (12+) 1989 HIV Screening 1992 Hepatitis C Screening 1995 Pneumococcal Vaccine: 0-49 Y ears (1 of 2 - PCV) 1996 Lipid Panel 2012 COVID-19 VACCINE ( season) 2025 06/09/2022, 05/08/2021, 09/24/2020 Influenza Vaccine (#1) 2025 DTAP/TDAP/TD VACCINES (2 - T d or Tdap) 10/22/2027 10/21/2017 Medical Devices Implanted Type Area Radiation Therapist Device Identifier Shelf Expiration Date Model / Serial / Lot Shell Trdnt 2 Trtnm Sldbck 56f 700-04-56f - [id number] Implanted:Qty : 1 on 02/07/2025 by Joe Arellano MD at [facility] TOTAL JOINT CONSTRUCT Right: Hip ANABELL:[employer] 04/03/2029 700-04-56 F / / [id number] Insrt Trident Poly X3 36mm F 723-00-36f - [id number] Implanted:Qty : 1 on 02/07/2025 by Joe Arellano MD at [facility] TOTAL JOINT CONSTRUCT Right: Hip ANABELL:[employer] 03/27/2029 723-00-36 F / / [id number] Stem Hip Std Off Insignia Sz 6 8631-1444 - [id number] Implanted:Qty : 1 on 02/07/2025 by Joe Arellano MD at [facility] TOTAL JOINT CONSTRUCT Right: Hip A[employer]BELL:[employer] 11/10/2026 1884-4150 / / [id number] Head Fem Ceramic V40 36mm 6570-0-136 - [id number] Implanted:Qty : 1 on 02/07/2025 by Joe Arellano MD at [facility] TOTAL JOINT CONSTRUCT Right: Hip ANABELL:[employer] 10/18/2029 6570-0-13 6 / / [id number] Procedures Procedure Name Priority Date/Time Associated Diagnosis Comments XR HIP 2 VIEWS RIGHT Routine 02/19/2025 9:18 AM EDT S/P total right hip arthroplasty XR HIP 2 VIEWS RIGHT STAT 02/07/2025 12:04 PM EDT ANESTHESIA INTUBATION Routine 02/07/2025 9:46 AM EDT [place] ARTHRP ACETBLR/PROX FEM PROSTC AGRFT/ALGRFT 02/07/2025 9:38 AM EDT Osteoarthritis of right hip Case Notes 0700 TISSUE EXAM ([place]) AP Routine 02/07/2025 8:02 AM EDT Osteoarthritis of right hip XR HIP 2 VIEWS RIGHT Routine 01/22/2025 9:02 AM EDT Primary osteoarthritis of right hip from Last 3 Months Results * XR hip 2 views right (02/19/2025 9:18 AM EDT) Only the most recent of3 resultswithin the time period is included. Anatomical Region Laterality Modality Pelvis X-Ray Impressions 02/19/2025 9:47 AM EDT maintained hip hardware without signs of loosening, no acute bony abnormalities. Images personally reviewed and dictated by Sixto Kent PA-C under direct supervision of Dr. Joe Arellano in office today. Narrative 02/19/2025 9:47 AM EDT HISTORY: chronic hip pain Joe Arellano MD IMG DIAGNOSTIC IMAGING ORDERAB LES Final Result * AN SINGLE LUMEN INTUBATION (02/07/2025 9:46 [...] attempt by Hayley Salter CRNA with success. us Hayley Salter CRNA ANESTHESIA ORDERABLES Final Result * Tissue Exam (02/07/2025 8:02 [...] STRUCTURE / Unknown 02/07/2025 8:02 AM EDT Joe Arellano MD PATHOLOGY/CYTOLOGY ORDERABLES Final Result Performing Organization Address City/State/[facility] Co de Phone Number PATHOLOGY [facility]TOLOGY LABOR[facility]ORY [address] [place] [address] from Last 3 Months Insurance [facility] MEDICAID Advance Directives For more information, please contact: [phone] * Full Code (Latest Code Status on File) Date Activated Date Inactivated Comments 02/07/2025 11:29 AM 02/10/2025 8:40 PM * Full Code Date Activated Date Inactivated Comments 02/07/2025 6:29 AM 02/07/2025 11:29 AM If no pulse : No intervention If has pulse: Use intubation, mechanical ventilation, defibrillation, ACLS medications, or cardioversion as indicated. Call [employer] * Full Code Date Activated Date Inactivated Comments 02/07/2025 6:29 AM 02/07/2025 6:29 AM Healthcare Agents on File Name Relationship Healthcare Agent Relationshi p Communication Lorena Solano Step Parent Healthcare Decision-Maker Care Teams Barrel Charrer Relationship Specialty Start Date End Date [facility], Find-A-Doc [facility] [place] [address] PCP - General 02/07/25
--- OUTSIDE RECORDS SUMMARY | 2025-03-24 18:53 | XMS_ITS | Referral Summary ---
Author Organization [employer] ([place], [place], [place], [place]) Address [address] [place] [address] Care Team Providers Care Kitchen Manager Name Role Phone [facility] Singh FindTarikATarikDoc Primary Care Provider Encounters Date Type Department Care Team Description 03/19/2025 10:30 AM EDT Office Visit [address] [phone] Olga Carter PA-C S/P total right hip arthroplasty (Primary Dx) 03/06/2025 Orders Only [address] [address] Joe Arellano MD 03/05/[address] [address] Joe Arellano MD Medication Refill 02/25/2025 Telephone [facility] [address] [address] Sobeida Weber RN Post-Op Follow-up 02/25/2025 Telephone [facility] [address] [address] Sobeida Weber RN Post-Op Follow-up 02/19/2025 9:15 AM EDT Ancillary Procedure [address] [address] Joe Arellano MD S/P total right hip arthroplasty 02/19/2025 8:45 AM EDT Office Visit [address] [address] Joe Arellano MD S/P total right hip arthroplasty (Primary Dx) 02/07/2025 Travel 02/07/2025 9:00 AM EDT - 02/07/2025 11:11 AM EDT Surgery [facility] Operating Room [address] [place] [address] Joe Arellano MD ARTHROPLASTY, HIP 02/07/2025 9:38 AM EDT Anesthesia Event [facility] Operating Room [address] [place] [phone] Hayley Salter, SABRINA 02/07/2025 7:12 AM EDT - 02/07/2025 3:35 PM EDT Hospital Encounter [facility] Operating Room [address] [place] [address] Joe Arellano MD Status post right hip replacement 02/07/25 (Primary Dx); Osteoarthritis of right hip Discharge Disposition: Home or Self Care 02/05/2025 Travel 02/05/2025 1:00 PM EDT - 02/05/2025 11:59 PM EDT Hospital Encounter [facility] Preadmissions Testing [address] [place] [phone] Discharge Disposition: Home or Self Care 02/01/2025 Orders Only [address] [address] Lilia Dunn PA-C Primary osteoarthritis of right hip (Primary Dx); Positive result for methicillin resistant Staphylococcus aureus (MRSA) screening 01/28/2025 Telephone [facility] [address] [place] [address] Sobeida Weber RN schedule ortho class 01/22/2025 Orders Only [facility] [address] [address] Joe Arellano MD Pre-op exam (Primary Dx) 01/22/2025 9:00 AM EDT Ancillary Procedure [address] [address] Joe Arellano MD 01/22/2025 8:30 AM EDT Office Visit [address] [address] Joe Arellano MD Primary osteoarthritis of right hip (Primary Dx); Osteoarthritis of right hip from Last 3 Months Allergies No known active allergies Medications albuterol [...] Date Osteoarthritis of right hip 01/22/2025 02/07/2025 Social History Tobacco Use Types Packs/Day Years [...] Description 04/30/2025 10:45 AM EST Office Visit [facility] Orthopedics - [address] [address] Joe Arellano MD [address] [place] [address] Medical Devices Implanted Type Area Radiocommunications Technician Device Identifier Shelf Expiration Date Model / Serial / Lot Shell Trdnt 2 Trtnm Sldbck 56f 700-04-56f - [id number] Implanted:Qty : 1 on 02/07/2025 by Joe Arellano MD at [facility] TOTAL JOINT CONSTRUCT Right: Hip ANABELL:[employer] 04/03/2029 700-04-56 F / / [id number] Insrt Trident Poly X3 36mm F 723-00-36f - [id number] Implanted:Qty : 1 on 02/07/2025 by Joe Arellano MD at [facility] TOTAL JOINT CONSTRUCT Right: Hip ANABELL:[employer] 03/27/2029 723-00-36 F / / [id number] Stem Hip Std Off Insignia Sz 6 2797-5135 - [id number] Implanted:Qty : 1 on 02/07/2025 by Joe Arellano MD at [facility] TOTAL JOINT CONSTRUCT Right: Hip A[employer]BELL:[employer] 11/10/2026 7472-8517 / / [id number] Head Fem Ceramic V40 36mm 6570-0-136 - [id number] Implanted:Qty : 1 on 02/07/2025 by Joe Arellano MD at [facility] TOTAL JOINT CONSTRUCT Right: Hip A[employer]BELL:[employer] 10/18/2029 6570-0-13 6 / / [id number] Procedures Procedure Name Priority Date/Time Associated Diagnosis Comments XR HIP 2 VIEWS RIGHT Routine 02/19/2025 9:18 AM EDT S/P total right hip arthroplasty XR HIP 2 VIEWS RIGHT STAT 02/07/2025 12:04 PM EDT ANESTHESIA INTUBATION Routine 02/07/2025 9:46 AM EDT [place] ARTHRP ACETBLR/PROX FEM PROSTC AGRFT/ALGRFT 02/07/2025 9:38 [...] SINGLE LUMEN INTUBATION (02/07/2025 9:46 AM EDT) Narrative Hayley Salter CRNA - 02/07/2025 9:46 AM EDT Hayley [...] Final Result [facility]TOLOGY LABOR[facility] [address] from Last 3 Months Insurance [facility] MEDICAID Advance Directives For more information, please contact: [phone] * Full Code (Latest Code Status on File) Date Activated Date Inactivated Comments 02/07/2025 11:29 AM 02/10/2025 8:40 PM * Full Code Date Activated Date Inactivated Comments 02/07/2025 6:29 AM 02/07/2025 11:29 AM If no pulse : No intervention If has pulse: Use intubation, mechanical ventilation, defibrillation, ACLS medications, or cardioversion as indicated. Call [employer] * Full Code Date Activated Date Inactivated Comments 02/07/2025 6:29 AM 02/07/2025 6:29 AM Healthcare Agents on File Name Relationship Healthcare Agent Relationstx p Communication Lorena Solano Step Parent Healthcare Decision-Maker Care Teams Kitchen Manager Relationship Specialty Start Date End Date [facility], Find-A-Doc [facility] Connection Find-a-Doc [place] [id number] PCP - General 02/07/25
--- OUTSIDE RECORDS SUMMARY | 2025-03-24 18:53 | XMS_ITS | Encounter Summary ---
Author Organization [employer] ([place], [place], [place], [place]) Address [address] [place] [address] Care Team Providers Care Superintendent Building Name Role Phone [facility] Singh, Find-A-Doc Primary Care Provider Reason for Visit * Reason Onset Date Comments Post-Op Follow-up 02/25/2025 Encounter Details Date Type Department Care Team (Late Contact Info) Description 02/25/2025 Telephone [facility] [address] [place] [address] [place] [address] Sobeida Lemon RN Post-Op Follow-up Social History Tobacco Use Types Packs/Day Years [...] Telephone Encounter - Sobeida Lemon RN - 02/25/2025 2:16 PM EDT Post op follow up call, patient not available. documented in this encounter Plan of Treatment Upcoming Encounters Date Type Department Care Team (Late Contact Info) Description 04/30/2025 10:45 AM EST Office Visit [facility] Orthopedics - [address] [address] Joe Arellano MD [address] [place] [phone] documented as of this encounter Visit Diagnoses Not on filedocumented in this encounter Care Teams Superintendent Building Relationship Specialty Start Date End Date [facility] Connection, Find-A-Doc [facility] [place] [address] PCP - General 02/07/25 documented as of this encounter
--- OUTSIDE RECORDS SUMMARY | 2025-03-24 18:53 | XMS_ITS | Encounter Summary ---
Author Organization [employer] ([place], [place], [place], [place]) Address [address] [place] [address] Care Team Providers Care Digester Cook Name Role Phone [facility] Singh, Find-A-Doc Primary Care Provider Reason for Visit * Reason Onset Date Comments Medication Refill 03/05/2025 Encounter Details Date Type Department Care Team (Late st Contact Info) Description 03/05/2025 Telephone [facility] Orthopedics - [address] [address] Joe Arellano MD [address] [place] [address] Medication Refill Social History Tobacco Use Types Packs/Day Years [...] encounter Miscellaneous Notes * Telephone Encounter - Nina Merrill CMA - 03/05/2025 3:41 PM EDT Type of Surgery / Fracture: Right total hip arthroplasty Date of Surgery / Fracture: 02-07-25 Medication(s) Requested: Oxycodone 10 # of Previous Refills: 2 post op Pharmacy: [facility] documented in this encounter Plan of Treatment Upcoming Encounters Date Type Department Care Team (Late st Contact Info) Description 04/30/2025 10:45 AM EST Office Visit [facility] Orthopedics - [address] [address] Joe Arellano MD [address] [place] [address] documented as of this encounter Visit Diagnoses Not on filedocumented in this encounter Care Teams Digester Cook Relationship Specialty Start Date End Date [facility] Connection, Find-A-Doc [facility] [place] [address] PCP - General 02/07/25 documented as of this encounter
--- OUTSIDE RECORDS SUMMARY | 2025-03-24 18:53 | XMS_ITS | Encounter Summary ---
Author Organization [employer] ([place], [place], [place], [place]) Address [address] [place] [address] Care Team Providers Care Sausage Mixer Name Role Phone Unavailable Primary Care Provider Unavailabl e Encounter Details Date Type Department Care Team (Latest Contact Info) Description 02/05/2025 Travel Social History Tobacco Use Types Packs/Day Years [...] Description 04/30/2025 10:45 AM EST Office Visit [facility] Orthopedics - [address] [phone] Joe Arellano MD [address] [place] [address] documented as of this encounter Visit Diagnoses Not on filedocumented in this encounter
--- OUTSIDE RECORDS SUMMARY | 2025-03-24 18:53 | XMS_ITS | Encounter Summary ---
Author Organization [employer] ([place], [place], [place], [place]) Address [address] [place] [address] Care Team Providers Care Warehouse Stocker Name Role Phone [facility] Singh, Find-A-Doc Primary Care Provider Reason for Visit * Reason Onset Date Comments Post-Op Follow-up 02/25/2025 Encounter Details Date Type Department Care Team ([facility] Contact Info) Description 02/25/2025 Telephone [facility] [address] [place] [address] Sobeida Lemon RN Post-Op Follow-up [...] Encounter - Sobeida Lemon RN - 02/25/2025 2:41 PM EDT Patient states that he is doing okay, has no questions or concerns. documented in this encounter Plan of Treatment Upcoming Encounters Date Type Department Care Team ([facility] Contact Info) Description 04/30/2025 10:45 AM EST Office Visit [facility] Orthopedics - [address] [address] Joe Arellano MD [address] [place] [address] documented as of this encounter Visit Diagnoses Not on filedocumented in this encounter Care Teams Warehouse Stocker Relationship Specialty Start Date End Date [facility] Connection, Find-A-Doc [facility] [place] [address] PCP - General 02/07/25 documented as of this encounter
--- OUTSIDE RECORDS SUMMARY | 2025-03-24 18:53 | XMS_ITS | Encounter Summary ---
Author Organization [employer] ([place], [place], [place], [place]) Address [address] [place] [address] Care Team Providers Care Motor Bus Driver Name Role Phone [facility] Singh, Find-A-Doc Primary Care Provider Encounter Details Date Type Department Care Team (Late st Contact Info) Description 03/06/2025 Orders Only [facility] Orthopedic[address] [address] Joe Arellano MD [address] [place] [address] Social History Tobacco Use Types Packs/Day Years [...] on file documented as of this encounter Progress Notes * Joe Arellano MD - 03/06/2025 7:57 AM EDT Oxycodone taper documented in this encounter Plan of Treatment Upcoming Encounters Date Type Department Care Team (Late st Contact Info) Description 04/30/2025 10:45 AM EST Office Visit [address] [address] Joe Arellano [place] [address] documented as of this encounter Visit Diagnoses Not on filedocumented in this encounter Care Teams Motor Bus Driver Relationship Specialty Start Date End Date [facility] Connection, Find-A-Doc [facility] [place] [address] PCP - General 02/07/25 documented as of this encounter
--- OUTSIDE RECORDS SUMMARY | 2025-03-24 18:53 | XMS_ITS | Encounter Summary ---
Author Organization [employer] ([place], [place], [place], [place]) Address [address] [place] [address] Care Team Providers Care Head Of Data Name Role Phone [facility] Singh Find-A-Doc Primary Care Provider Encounter Details Date Type Department Care Team (Latest Contact Info) Description 02/07/2025 Travel Social History Tobacco Use Types Packs/Day [...] Description 04/30/2025 10:45 AM EST Office Visit [facility] Orthopedics - [address] [address] Joe Arellano MD [address] [place] [address] documented as of this encounter Visit Diagnoses Not on filedocumented in this encounter Care Teams Head Of Data Relationship Specialty Start Date End Date [facility] Singh Find-A-Kam [facility] [place] [address] PCP - General 02/07/25 documented as of this encounter
--- NOTE | 2025-03-24 19:12 | CT_ITS ---
PROCEDURE INFORMATION: Exam: CT Right Upper Extremity With Contrast, Elbow Exam date and time: 03/24/2025 7:27 PM Age: 49 years old Clinical indication: Swelling; Elbow; Right; Additional info: Swelling forearm elbow upper arm pain red TECHNIQUE: Imaging protocol: Computed tomography of the right upper extremity with contrast. Exam focused on the elbow. Radiation optimization: All CT scans at this facility use at least one of these dose optimization techniques: automated exposure control; mA and/or kV adjustment per patient size (includes targeted exams where dose is matched to clinical indication); or iterative reconstruction. Contrast material: ISOVUE; Contrast volume: 75 ml; Contrast route: IV; COMPARISON: No relevant prior studies available. FINDINGS: Bones/joints: No acute fracture or dislocation. Soft tissues: Soft tissue swelling involving the posterior elbow and posterior proximal forearm. There is cerebral rim enhancement of the distal triceps muscle with a possible developing abscess distally measuring 2 cm. IMPRESSION: Soft tissue swelling involving the posterior elbow and posterior proximal forearm. There is peripheral rim enhancement of the distal triceps muscle with a possible developing abscess distally measuring 2 cm.
--- NOTE | 2025-03-24 19:15 | ED_ITS ---
Discharge Plan Disposition Patient Disposition: Xfer Short-Term Hosp Prescriptions Prescriptions: No Action methocarbamol 500 mg tablet 500 mg PO Q6H PRN (Reason: pain) Qty: 30 0RF lidocaine 5 % adhesive patch,medicated 1 patch topical DAILY PRN (Reason: pain) Qty: 30 0RF Rx Instructions: leave on most painful area for up to 12 hrs cyclobenzaprine 5 mg tablet 5 mg PO TID PRN (Reason: muscle spasm) Qty: 30 0RF Referrals Follow up/Referrals: Provider,Referral, MD [Primary Care Provider, Medical] - See instructions Clinical Impressions Clinical Impression: Abscess, Cellulitis of arm, Elbow swelling, Sepsis Print Language Print Language: Khmer Discharge ED Provider: Orion Reveles General Adult HPI General Chief complaint: Extremity Problem,Nontraumatic Stated complaint: weakness,right elbow, and shoulder pain Time Seen by Provider: 03/24/25 18:59 Mode of Arrival: Ambulatory Source of Information: Patient and Spouse Description of Symptoms (Recalled from ER Triage Doc. by RN): PATIENT PRESENTS TO ED FOR RIGHT ELBOW PAIN AND SWELLING. NO KNOWN INJURY, STATES THIS HAS BEEN GOING ON FOR MAYBE 2-3 WEEKS. REPORTS TODAY HE WOKE UP FEELING FATIGUED, NO ENERGY, CHILLS, HAS SLEPT A LOT TODAY. RIGHT ELBOW APPEARS RED, SWOLLEN, AND IS HOT TO THE TOUCH. History of Present Illness HPI narrative: Patient is a 49-year-old male with past medical history of previous gout in his feet who presents emergency department for evaluation of pain in his right elbow. Patient states he has symptoms from twinges of elbow pain over the last week or so however pain really declared itself with swelling over the last 48 hours about his elbow. The swelling has extended into his proximal forearm and his distal upper arm there is swelling around his elbow with warmth. He has had intermittent paresthesias of his hand but does not have any currently. No new trauma. Has never had gout in his elbow before. There is associated severe pain with limited range of motion. No other acute complaints at this time. Please note that above description of symptoms, in this electronic medical record under categorization of recalled from ER triage doctor by RN are reflective of an initial nursing assessment, however, is not reflective of my full history and physical exam that was personally taken and clarified. Consequentially, this preceding description of symptoms, which may include the patient's categorized chief complaint in the EMR, do not reflect my personal clinical impression, and the ultimate description of history of present illness and patient stated complaints should be deferred to this section of the note. Unless stated otherwise or congruent with this section of the note, additional signs, symptoms, or incongruence should be interpreted as inaccurate with my clinical impression. 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 Social History (Updated 09/20/24 @ 00:54 by Shun Calixto MD) Smoking Status: Never smoker alcohol intake: never current occupational status: employed Travel in the last 8 weeks?: None Have you lived/traveled outside [place] in past 30 days?: No Contact w/someone who lives/traveled outside US past 30 days?: No Exposure to someone with infectious disease in past 14 days?: No Do you have a fever (greater than 100.4 F or 38 C)?: No Have you tested positive for COVID-19?: No Exposed to someone with COVID-19 in past 14 days?: No Do you have a sore throat?: No Do you have a cough?: No Do you have any weakness?: No Do you have any diarrhea?: No Are you experiencing any unusual bleeding?: No Do you have any muscle aches/pain?: No Do you have any abdominal pain?: No Are you experiencing loss of taste or smell?: No ROS Obtained: Yes Systems reviewed as appropriate & no additional complaints except as documented Physical Exam General General appearance: alert and in distress Head Head exam: atraumatic and normocephalic Eye Eye exam: Present PERRL and EOMI ENT ENT exam: Present mucous membranes moist Neck Neck exam: Present normal inspection Chest Chest inspection: Present normal inspection and symmetric chest wall rise Respiratory Respiratory exam: Present normal lung sounds bilaterally; Absent respiratory distress Cardiovascular Cardiovascular exam: Present normal rhythm and tachycardia Extremities Exam Extremities exam: Present other (Significant swelling and warmth around the right proximal forearm, elbow, right distal arm. Limited active and passive range of motion of the right elbow secondary to pain. Palpable radial pulse on the right, sensation intact distally on the right.) Neurological Exam Neurological exam: Present alert Psychiatric Psychiatric exam: Present normal affect Skin Skin exam: Present warm and dry Medical Decision Making Medical Records Screening: Per USPSTF and CDC recommendations, given the prevalence of disease in our region, it is our hospital?s policy to screen for HIV and viral Hepatitis for all patients aged 18 and over and those with ongoing risk factors. Raulito Inquiry Pt receiving controlled substance: No Vital Signs: 03/24/25 18:50 03/24/25 18:50 03/24/25 20:10 Temperature 99.1 F 99.1 F Temperature Source Oral Pulse Rate 112 H 94 H Pulse Rate [Right] 112 H Respiratory Rate 22 22 Blood Pressure 162/84 H 138/68 Blood Pressure [Left Arm] 162/84 H Blood Pressure Mean 108 Blood Pressure Mean [Left Arm] 110 02 Sat by Pulse Oximetry 99 99 97 03/24/25 20:31 Temperature Temperature Source Pulse Rate 107 H Pulse Rate [Right] Respiratory Rate Blood Pressure 155/74 H Blood Pressure [Left Arm] Blood Pressure Mean 101 Blood Pressure Mean [Left Arm] 02 Sat by Pulse Oximetry 92 L Lab Data Lab Results 03/24/25 18:59: WBC 14.4 H, RBC 4.88, Hgb 13.5 L, Hct 40.6 L, MCV 83.2, MCH 27.7, MCHC 33.3, RDW 14.0, Plt Count 309, MPV 9.1, Neut % (Auto) 78.2, Lymph % (Auto) 8.1 L, [place] % (Auto) 10.2 H, Eos % (Auto) 2.5, Baso % (Auto) 0.5, Neut # (Auto) 11.2 H, Lymph # (Auto) 1.2, [place] # (Auto) 1.5 H, Eos # (Auto) 0.4, Baso # (Auto) 0.1, VBG pH 7.43 H, VBG pCO2 39.9, VBG pO2 87.7 H, VBG HCO3 25.7, VBG Total CO2 26.9, VBG O2 Saturation 96.9 H, VBG Base Excess 1.3, VBG Lactic Acid 3.4 H, Sodium 136, Potassium 3.8, Chloride 99, Carbon Dioxide 28, Anion Gap 12.8, BUN 9, Creatinine 0.70, Estimated Creat Clear 243, Estimated GFR 121, Est GFR ( Amer) 146, Glucose 141 H, Calcium 9.0, Total Bilirubin 0.8, AST 43, ALT 46, Alkaline Phosphatase 109, C-Reactive Protein 54.9 H, Total Protein 7.0, Albumin 4.1, Globulin 2.9, Albumin/Globulin Ratio 1.4 03/24/25 18:59 03/24/25 18:59 Orders (Tests/Meds): ED MEDICATIONS Generic Name Dose Route Start Last Admin Trade Name Freq PRN Reason Stop Dose Admin Clindamycin Phosphate 900 mg in 50 mls @ 100 mls/hr 03/24/25 21:33 Clindamycin 900mg/50ml D5w Premix IV 03/24/25 22:02 ONCE ONE Miscellaneous 1 each 03/24/25 19:15 03/24/25 19:45 Vancomycin Consult Request NOTAPPLIC 04/23/25 19:14 1 each CONSULT PHARMACY [facility] Administration Sodium Chloride 10 ml 03/24/25 19:31 03/24/25 19:32 Sodium Chloride 0.9% 10ml Syr (Rad Only) IV 04/23/25 19:30 10 ml NEEDED PRN Administration Maintain IV Site Discontinued Medications Generic Name Dose Route Start Last Admin Trade Name Freq PRN Reason Stop Dose Admin Acetaminophen 1,000 mg 03/24/25 19:14 03/24/25 19:44 Acetaminophen 1,000mg/100ml Vial IV 03/24/25 19:15 1,000 mg ONCE ONE Administration Hydromorphone HCl 1 mg 03/24/25 19:13 03/24/25 19:16 Hydromorphone 2mg/Ml Syringe IV 03/24/25 19:14 1 mg ONCE ONE Administration Lactated Ringer's 2,540 mls @ 1,270 mls/hr 03/24/25 19:12 03/24/25 19:44 Lactated Ringer's 1000 Ml Bag 30 ml/kg infuse over 2 hr (2540 ml) 03/24/25 21:11 1,270 mls/hr IV Administration .Q2H ONE Vancomycin HCl 2,500 mg/ 500 mls @ 250 mls/hr 03/24/25 19:30 03/24/25 19:45 Sodium Chloride IV 03/24/25 21:29 250 mls/hr ONCE ONE Administration Piperacillin Sod/Tazobactam 100 mls @ 200 mls/hr 03/24/25 19:32 03/24/25 20:17 Sod 4.5 gm/ Sodium Chloride IV 03/24/25 20:01 Infused ONCE ONE Infusion Iopamidol 75 ml 03/24/25 19:31 03/24/25 19:32 Iopamidol-370 (76%);100ml Bottle IV 03/24/25 19:32 75 ml ONCE ONE Administration Ketorolac Tromethamine 30 mg 03/24/25 19:14 03/24/25 19:45 Ketorolac 30mg/Ml Vial IV 03/24/25 19:15 30 mg ONCE ONE Administration ORDERS Category Date Time Status CT RUE w/ con Stat Cat Scan 03/24/25 19:12 Completed POCUS Point of Care (ER Only) Stat Exams 03/24/25 19:14 Completed CBC w/Auto Diff [Complete Blood Count Auto Diff] Stat Lab 03/24/25 18:59 Completed CMP [Comprehensive Metabolic Panel] Stat Lab 03/24/25 18:59 Completed CRP [C-Reactive Protein] Stat Lab 03/24/25 18:59 Completed Blood Culture Stat Micro 03/24/25 19:45 Received VBG [Venous Blood Gas] Stat RT 03/24/25 18:59 Completed Medical Decision Narrative: In summary patient is a 49-year-old male with past medical history of scrota above who presents emergency department for evaluation of severe right elbow pain and swelling in the setting of previous gout in his feet. Patient is hemodynamically stable and ill-appearing upon arrival, afebrile, tachycardic. My concern for infectious arthropathy is high versus deep space infection of the arm versus septic bursitis. Broad workup will be conducted with hematologic labs, CT of the right upper extremity with IV contrast, blood cultures. Initial interventions include broad-spectrum antibiotics with vancomycin and Zosyn, multimodal pain control, sepsis bolus fluids. Initial work reviewed by me leukocytosis 14,000 and with left shift, mildly elevated lactate 3.4, no LOLIS or critical electrolyte abnormality CRP elevated at 54. Patient has skin and soft tissue swelling of the posterior elbow and posterior proximal forearm with peripheral rim enhancement of the distal triceps developing abscess. Upon repeat evaluation patient is similar-appearing, no worsening clinical status will broaden antibiotics for double coverage with clindamycin tissue reperfusion assessment performed after initiation of sepsis bolus fluids and will continue. Shared decision making discussion was had at bedside, patient wishes to try [facility] first and if they are unavailable we will try [facility]. [facility] is unable to accept this patient at this time call [facility] Dr. Mckenzie graciously excepted patient for transfer for continued evaluation. Critical Care Critical Care Time Critical Care Time: Yes Attestation: On 03/24/25, the high probability of a clinically significant, sudden or life threatening deterioration of the following system(s) required my full and direct attention, intervention and personal management. The time I documented below is in addition to time spent performing reported procedures but includes the following listed in this critical care notation. Total Time Total Critical Care Time: 35
[2025-03-24] MEDS: HYDROMORPHONE 2MG/ML SYRINGE 1 MG IV (19:16)
[2025-03-24 19:22] LABS: VBG HCO3 25.7 mmol/L (23-30); VBG PCO2 39.9 mmol/L (35-51); VBG PH 7.43 mmol/L (7.31-7.41); VBG PO2 87.7 mmol/L (28-40)
[2025-03-24 19:24] LABS: Hematocrit 40.6 % (42.0-52.0); Hemoglobin 13.5 g/dL (14.1-18.0); Immature Granulocytes % 0.5 %; Mean Corpuscular HGB Conc 33.3 g/dL (31.8-35.4); Mean Corpuscular Hemoglobin 27.7 pg (27.0-31.2); Mean Corpuscular Volume 83.2 fl (80-94); Nucleated Red Blood Cells % 0 %; Platelet Count 309 K/mm3 (142-424); Red Blood Count 4.88 M/mm3 (4.60-6.20); Red Cell Distribution Width-SD 42.6 fL; White Blood Count 14.4 K/mm3 (4.8-10.8)
--- NOTE | 2025-03-24 19:26 | PC.NURSE ---
Spoke with Lilian at [facility] to confirm van dosing
[2025-03-24 19:28] LABS: Alanine Aminotransferase 46 U/L (12-78); Albumin Level 4.1 g/dl (3.5-5.0); Albumin/Globulin Ratio 1.4 (1.1-1.8); Alkaline Phosphatase 109 U/L (38-126); Anion Gap 12.8 mEq/L (5-15); Aspartate Amino Transferase 43 U/L (17-59); Bilirubin,Total 0.8 mg/dl (0.2-1.3); Blood Urea Nitrogen 9 mg/dl (9-20); Calcium 9.0 mg/dl (8.4-10.2); Carbon Dioxide 28 mmol/L (22.0-30.0); Chloride 99 mmol/L (98-107); Creatinine Clearance Estimated 243 mL/min (50-200); Creatinine,Serum 0.70 mg/dl (0.66-1.25); Estimated Glomerular Filt Rate 121 ml/min (>60); GFR (African American) 146 ML/MIN (>60); Globulin 2.9 g/dL (1.3-3.2); Glucose 141 mg/dl (74-100); Potassium 3.8 mmoL/L (3.5-5.1); Sodium 136 mmol/L (136-145); Total Protein,Serum 7.0 g/dl (6.3-8.2)
[2025-03-24 19:29] LABS: Lactate Venous 3.4 mmol/L (0.4-2.0)
[2025-03-24] MEDS: IOPAMIDOL-370 (76%);100ML BOTTLE 75 ML IV (19:32)
[2025-03-24] MEDS: SODIUM CHLORIDE 0.9% 10ML SYR (RAD ONLY) 10 ML IV (19:32)
[2025-03-24 19:34] LABS: C-Reactive Protein 54.9 mg/L (0-4)
[2025-03-24] MEDS: ACETAMINOPHEN 1,000MG/100ML VIAL 1000 MG IV (19:44)
[2025-03-24] MEDS: LACTATED RINGERS 1270 ML IV (19:44)
[2025-03-24] MEDS: VANCOMYCIN CONSULT REQUEST 1 EACH NOTAPPLIC (19:45)
[2025-03-24] MEDS: VANCOMYCIN HCL 2,500 MG in 0.9 % SODIUM CHLORIDE 500 ML 250 MG IV (19:45)
[2025-03-24] MEDS: KETOROLAC 30MG/ML VIAL 30 MG IV (19:45)
[2025-03-24] MEDS: PIPERACILLIN/TAZO 4.5 GM in 0.9 % SODIUM CHLORIDE 100 ML IV (19:57)
[2025-03-24 20:10] VITALS: BP 138/68; PULSE 94; O2SAT 97
[2025-03-24 20:31] VITALS: BP 155/74; PULSE 107; O2SAT 92
--- NOTE | 2025-03-24 21:43 | PC.NURSE ---
Spoke with [facility], awaiting a call back for doctor Reveles.
--- NOTE | 2025-03-24 21:49 | PC.NURSE ---
Spoke with transfer center about this pt, awaiting a call back at this time
[2025-03-24 22:00] VITALS: BP 117/71; PULSE 90; RESP 16; TEMP 36.5; O2SAT 98
[2025-03-24] MEDS: CLINDAMYCIN PHOSPHATE/D5W 900 MG/50 ML PIGGYBACK 100 MG IV (22:16)
[2025-03-24 23:28] LABS: Reflex Lactic Add Lactic Reflex
[2025-03-25 00:24] VITALS: BP 134/73; PULSE 90; RESP 16; TEMP 36.5; O2SAT 98
[2025-03-25 13:35] LABS: Acinetobacter calcoaceticus-ba Not Detected; Bacteroides fragilis Not Detected; Candida auris Not Detected; Candida glabrata Not Detected; Enterobacterales Not Detected; Enterococcus faecalis Not Detected; Enterococcus faecium Not Detected; Klebsiella aerogenes Not Detected; Klebsiella pneumoniae grp Not Detected; Proteus spp. Not Detected; Salmonella spp. Not Detected; Serratia marcescens Not Detected; Staphylococcus epidermidis Detected; Staphylococcus lugdunensis Not Detected; Staphylococcus spp. Detected; Stenotrophomonas maltophilia Not Detected; Streptococcus agalactiae(GrpB) Not Detected; Streptococcus pyogenes Group A Not Detected; Streptococcus spp. Not Detected; mecA/C Detected
--- NOTE | 2025-03-25 16:15 | PC.NURSE ---
BLOOD CULTURE FAXED TO [phone], [facility] FLOOR
== END 2025-03-25 00:26 | disposition short-term general hospital (02) ==
PROVIDERS: Emergency Provider Emergency Medicine
DX: A41.9 Sepsis, unspecified organism (principal); L03.113 Cellulitis of right upper limb; R22.31 Localized swelling, mass and lump, right upper limb; R74.02 Elevation of levels of lactic acid dehydrogenase [LDH]; B95.7 Other staphylococcus as the cause of diseases classified elsewhere; L02.413 Cutaneous abscess of right upper limb
CPT/HCPCS: 73201; 80053; 82803; 85025; 86140; 87040; 87077; 87154; 87186; 96365; 96366; 96367; 96375; 99285; J0131; J0736; J1171; J1885; J2543; J3373; J7040; J7120; Q9967